=== PATIENT | male | born 1945 | race Caucasian/White ===

== ENCOUNTER 2019-11-16 05:03 | Inpatient (IN) | payer MEDICARE, MEDICAID ==
[2019-11-16] VITALS (18 sets, daily range): BP systolic 84–131; BP diastolic 55–80
[~2019-11-16] VITALS: Ht 180 cm; Wt 58.5 kg
--- OUTSIDE RECORDS SUMMARY | 2019-11-16 05:09 | XMS REPORT ---
Author Author Supa CULP Organization [facility] Address [address] [place], [place] [id number] Care Team Providers Care Auto Body Repair Teacher Name Role Phone GAVIN CULP PCP Allergies and Adverse Reactions Name Reaction Notes NO KNOWN DRUG ALLERGIES Plan of Treatment Not available. Medications Active Name Start Date Estimated Completion Date SIG Co mments alprazolam 0.5 mg oral tablet 07/19/2018 10/17/2018 ta ke 1 tablet by oral route 2 times a day as needed for 30 days Discontinued Name Start Date Discontinued Date SIG Comments Xanax 0.5 mg oral tablet 01/07/2012 01/07/2012 take 1 tablet (0.5 mg) by oral route 3 times per day for 30 days deleted alprazolam 0.5 mg oral tablet 09/06/2012 10/05/2012 TA KE 1 TABLET 3 TIMES A DAY NEEDED -THANK YOU. Must last 30 days deleted alprazolam 0.5 mg oral tablet 03/09/2013 10/05/2012 TA KE 1 TABLET 3 TIMES A DAY NEEDED -THANK YOU. deleted alprazolam 0.5 mg oral tablet 03/09/2013 03/09/2013 TA KE 1 TABLET 3 TIMES A DAY NEEDED -THANK YOU. deleted alprazolam 0.5 mg oral tablet 03/09/2013 03/09/2013 TA KE 1 TABLET 3 TIMES A DAY NEEDED -THANK YOU. deleted Problem List Description Status Onset Anxiety disorder Active Anemia Active 09/06/2012 Hyperlipidemia Active 09/06/2012 Hyponatremia Active Chronic Obstructive Pulmonary Disease Active Tobacco abuse Active 09/12/2014 Generalized anxiety disorder Active 09/18/2015 Smoker unmotivated to quit Active 01/18/2016 MISBAH (generalized anxiety disorder) Active 01/17 Vital Signs Date Time BP-Sys(mm[Hg] BP-Dimple(mm[Hg]) HR(bpm) RR(rpm) Temp WT HT HC BMI BSA BMI Percentile O2 Sat(%) 07/19/2018 10:19:00 AM 144 mmHg 70 mmHg 82 bpm 18 rpm 98.4 F 184 lbs 68 in 27.9768 kg/m 2.0011 m 98 % 01/15/2016 11:36:00 AM 140 mmHg 80 mmHg 64 bpm 16 rpm 98.6 F 181 lbs 67 in 28.35 kg/m2 1.97 m2 97 % 09/14/2015 9:43:00 AM 108 mmHg 60 mmHg 64 bpm 18 rpm 97.2 F 180 lbs 68 in 27.3686 kg/m 1.9792 m 98 % 03/15/2015 8:26:00 AM 130 mmHg 74 mmHg 80 bpm 18 rpm 97 F 178 lbs 67 in 27.88 kg/m2 1.95 m2 98 % 09/12/2014 9:09:00 AM 140 mmHg 70 mmHg 64 bpm 18 rpm 97 F 181 lbs 67 in 28.3483 kg/m 1.97 m 98 % 07/11/2013 3:03:00 PM 136 mmHg 72 mmHg 86 bpm 20 rpm 97.1 F 176 lbs 67 in 27.57 kg/m2 1.94 m2 98 % 09/06/2012 11:52:00 AM 130 mmHg 60 mmHg 60 bpm 16 rpm 96.6 F 176 lbs 67 in 27.5652 kg/m 1.9426 m 98 % 10/09/2011 10:26:00 AM 126 mmHg 68 mmHg 60 bpm 168 lbs 67 in 26.3122 kg/m 1.90 m2 08/05/2010 9:04:00 AM 122 mmHg 78 mmHg 72 bpm 170 lbs 05/06/2010 10:52:00 AM 124 mmHg 72 mmHg 76 bpm 169 lbs Social History Name Description Comments Tobacco Current every day smoker denies alcohol use High school graduate Active but no formal exercise Uses seatbelts History of Procedures Date Ordered Description Order Status 10/23/2011 12:00 AM ROUTINE VENIPUNCTURE Reviewed 10/23/2011 12:00 AM COMPLETE CBC W/AUTO DIFF WBC Reviewed 10/23/2011 12:00 AM COMPREHEN METABOLIC PANEL Reviewed 10/23/2011 12:00 AM LIPID PANEL Reviewed 10/23/2011 12:00 AM Prostate Cancer Screening PSA Reviewed 09/06/2012 12:00 AM ROUTINE VENIPUNCTURE Reviewed 09/06/2012 12:00 AM COMPLETE CBC W/AUTO DIFF WBC Reviewed 09/06/2012 12:00 AM COMPREHEN METABOLIC PANEL Reviewed 09/12/2014 12:00 AM ROUTINE VENIPUNCTURE Reviewed 09/12/2014 12:00 AM COMPLETE CBC W/AUTO DIFF WBC Reviewed 09/12/2014 12:00 AM COMPREHEN METABOLIC PANEL Reviewed 09/12/2014 12:00 AM LIPID PANEL Reviewed 09/12/2014 12:00 AM Prostate Cancer Screening PSA Reviewed Results Summary Date and Description Results 10/23/2011 4:12 PM WBC 5.8 RBC 4.34 HGB 13.50 g /dLHCT 39.70 %MCV 92.0 fLMCH 31.10 pgMCHC 34.0 g/dLRDW SD 45 RDW CV 13.60 %MPV 10.40 fLPLT 212 NRBC# 0.00 NRBC% 0.0 %NEUT 59.10 %%LYMP 23.0 %%MONO 14.10 %%EOS 3.30 %%BASO 0.50 %#NEUT 3.45 #LYMP 1.34 #MONO 0.82 #EOS 0.19 #BASO 0.03 MANUAL DIFF NOT IND GLUCOSE 86.0 mg/dLSODIUM 134.0 mmol/LPOTASSIUM 3.80 mmol/LCHLORIDE 102.0 mmol/LCO2 21.0 mmol/LBUN 9.0 mg/dLCREATININE 0.70 mg/dLSGOT/AST 16.0 IU/LSGPT/ALT 9.0 IU/LALK PHOS 79.0 IU/LTOTAL PROTEIN 6.20 g/dLALBUMIN 4.20 g/dLTOTAL BILI 0.40 mg/dLCALCIUM 9.60 mg/dLAGE 66 GFR NonAA 113 GFR AA 137 eGFR 60 eGFR AA* 60 TRIGLYCERIDES 63.0 mg/dLCHOLESTEROL 202.0 mg/dLHDL 64.0 mg/dLTOT CHOL/HDL 3.2 LDL (CALC) 125.0 mg/dLPSA TOTAL 2.430 ng/mL 09/06/2012 4:30 PM WBC 6.4 RBC 4.30 HGB 13.0 g/ dLHCT 39.70 %MCV 92.0 fLMCH 30.20 pgMCHC 32.70 g/dLRDW SD 46 RDW CV 13.70 %MPV 10.40 fLPLT 300 NRBC# 0.00 NRBC% 0.0 %NEUT 60.70 %%LYMP 27.50 %%MONO 8.40 %%EOS 3.10 %%BASO 0.30 %#NEUT 3.88 #LYMP 1.76 #MONO 0.54 #EOS 0.20 #BASO 0.02 MANUAL DIFF NOT IND GLUCOSE 48.0 mg/dLSODIUM 142.0 mmol/LPOTASSIUM 3.90 mmol/LCHLORIDE 107.0 mmol/LCO2 25.0 mmol/LBUN 9.0 mg/dLCREATININE 0.80 mg/dLSGOT/AST 14.0 IU/LSGPT/ALT 6.0 IU/LALK PHOS 69.0 IU/LTOTAL PROTEIN 6.50 g/dLALBUMIN 3.90 g/dLTOTAL BILI 0.20 mg/dLCALCIUM 9.60 mg/dLAGE 67 GFR NonAA 96 GFR AA 116 eGFR 60 eGFR AA* 60 09/12/2014 3:54 PM WBC 5.9 RBC 4.13 HGB 12.50 g /dLHCT 37.60 %MCV 91.0 fLMCH 30.30 pgMCHC 33.20 g/dLRDW SD 44 RDW CV 13.40 %MPV 10.0 fLPLT 282 NRBC# 0.00 NRBC% 0.0 %NEUT 65.0 %%LYMP 24.10 %%MONO 8.0 %%EOS 2.70 %%BASO 0.20 %#NEUT 3.82 #LYMP 1.42 #MONO 0.47 #EOS 0.16 #BASO 0.01 MANUAL DIFF NOT IND TRIGLYCERIDES 59.0 mg/dLCHOLESTEROL 172.0 mg/dLHDL 36.0 mg/dLTOT CHOL/HDL 4.8 LDL (CALC) 124.0 mg/dLGLUCOSE 77.0 mg/dLSODIUM 137.0 mmol/LPOTASSIUM 3.80 mmol/LCHLORIDE 105.0 mmol/LCO2 23.0 mmol/LBUN 6.0 mg/dLCREATININE 0.70 mg/dLSGOT/AST 14.0 IU/LSGPT/ALT <6 IU/LALK PHOS 75.0 IU/LTOTAL PROTEIN 6.40 g/dLALBUMIN 3.90 g/dLTOTAL BILI 0.30 mg/dLCALCIUM 8.90 mg/dLAGE 69 GFR NonAA 112 GFR AA 136 eGFR >60 mL/min/1.73 m2eGFR AA* >60 PSA TOTAL 2.540 ng/mL History Of Immunizations Not available. History of Past Illness Name Date of Onset Comments Anxiety disorder Anemia 09/06/2012 Hyperlipidemia 09/06/2012 Hyponatremia Chronic Obstructive Pulmonary Disease 09/06/2012 Anxiety Disorder May 06 2010 10:52AM Tobacco Abuse May 06 2010 10:52AM General Medical Exam, Adult May 06 2010 10:52AM Tobacco abuse 09/12/2014 Anxiety Disorder Aug 05 2010 9:05AM General Medical Exam, Adult Aug 05 2010 9:05AM Generalized anxiety disorder 09/18/2015 Smoker unmotivated to quit 01/18/2016 MISBAH (generalized anxiety disorder) 01/18/2016 Anxiety Disorder Oct 09 2011 10:27AM Tobacco Abuse Oct 09 2011 10:27AM Chronic Obstructive Pulmonary Disease Oct 09 2011 10:27AM Pain in joint; shoulder region, Left Oct 09 2011 10:27AM Anxiety Oct 23 2011 9:17AM Anemia Sep 06 2012 1:07PM Anxiety Disorder Sep 06 2012 1:07PM Hyponatremia Sep 06 2012 1:07PM Anxiety Disorder Sep 06 2012 11:54AM Tobacco Abuse Sep 06 2012 11:54AM Chronic Obstructive Pulmonary Disease Sep 06 2012 11:54AM Hyperlipidemia Sep 06 2012 11:54AM Anxiety Disorder Jul 11 2013 3:04PM Hyperlipidemia, unspecified Sep 12 2014 9:10AM Anxiety Disorder Sep 12 2014 9:10AM Tobacco Abuse Sep 12 2014 9:10AM Chronic Obstructive Pulmonary Disease Sep 12 2014 9:10AM Hyperlipidemia Sep 12 2014 1:19PM Anxiety Sep 12 2014 1:19PM Chronic Obstructive Pulmonary Disease Sep 12 2014 1:19PM Hyponatremia Sep 12 2014 1:19PM Prostate cancer screening Sep 12 2014 1:19PM Anxiety Disorder Mar 19 2015 7:51AM Chronic Obstructive Pulmonary Disease Mar 19 2015 7:51AM Tobacco Abuse Mar 19 2015 7:51AM Generalized anxiety disorder Sep 14 2015 9:44AM MISBAH (generalized anxiety disorder) Jan 15 2016 11:37AM COPD (chronic obstructive pulmonary disease) Jan 15 2016 11: 37AM Smoker unmotivated to quit Jan 15 2016 11:37AM MISBAH (generalized anxiety disorder) Jul 19 2018 10:21AM Medication management Jul 19 2018 10:21AM Payers Insurance Name Company Name Plan Name Plan Number Policy Number [place] Group Number Start Date Medicare RHC Medicare RHC [id number] N/A [facility] [id number] N/A Medicare Part A Medicare - Lab/Xray [id number] N/A Medicare Part A Medicare Part A [id number] N/A [facility] Assistance [facility] Jermainkaren Rincong [id number] N/A History of Encounters Visit Date Visit Type Provider 07/19/2018 Office visit GAVIN CEDILLO 01/15/2016 Office visit GAVIN CEDILLO 09/14/2015 Office visit GAVIN CEDILLO 03/15/2015 Office visit GAVIN CEDILLO 09/12/2014 Office visit GAVIN CEDILLO 07/11/2013 Office visit GAVIN CEDILLO 09/06/2012 Office visit GAVIN CEDILLO 10/23/2011 Office visit GAVIN CEDILLO 10/09/2011 Office visit GAVIN CEDILLO 08/05/2010 Office visit Gavin Wong 05/06/2010 Office visit Gavin Wong
--- OUTSIDE RECORDS SUMMARY | 2019-11-16 05:10 | XMS REPORT ---
Author Author Supa CULP Organization [facility] Address [address] [place], [place] [id number] Care Team Providers Care Physics Professor Name Role Phone GAVIN CULP PCP Unavailable Allergies and Adverse Reactions Name Reaction Notes NO KNOWN DRUG ALLERGIES Plan of Treatment Not available. Medications Active Name Start Date Estimated Completion Date SIG Co mments alprazolam 0.5 mg oral tablet 03/15/2015 ta ke 1 tablet by oral route 3 times a day as needed Discontinued Name Start Date Discontinued Date SIG [...] deleted Problem List Description Status Onset Anxiety Disorder Active Anemia Active 09/06/2012 Hyperlipidemia Active 09/06/2012 Hyponatremia Active Chronic Obstructive Pulmonary Disease Active Tobacco Abuse Active 09/12/2014 Vital Signs Date Time BP-Sys(mm[Hg] BP-Dimple(mm[Hg]) HR(bpm) RR(rpm) Temp WT HT HC BMI BSA BMI Percentile O2 Sat(%) 03/15/2015 8:26:00 AM 130 mmHg 74 mmHg [...] mmHg 60 bpm 168 lbs 67 in 26.31 kg/m2 1.90 m2 08/05/2010 9:04:00 AM 122 mmHg [...] 12:00 AM COMPLETE CBC W/AUTO DIFF WBC Returned 10/23/2011 12:00 AM COMPREHEN METABOLIC PANEL Returned 10/23/2011 12:00 AM LIPID PANEL Returned 10/23/2011 12:00 AM Prostate Cancer Screening PSA Returned 09/06/2012 12:00 AM ROUTINE VENIPUNCTURE Reviewed 09/06/2012 12:00 AM COMPLETE CBC W/AUTO DIFF WBC Reviewed 09/06/2012 12:00 AM COMPREHEN METABOLIC PANEL Reviewed 09/12/2014 12:00 AM ROUTINE VENIPUNCTURE Reviewed 09/12/2014 12:00 AM COMPLETE CBC W/AUTO DIFF WBC Reviewed 09/12/2014 12:00 AM COMPREHEN METABOLIC PANEL Reviewed 09/12/2014 12:00 AM LIPID PANEL Reviewed 09/12/2014 12:00 AM Prostate Cancer Screening PSA Reviewed Results Summary Data and Description Results 10/23/2011 4:12 PM WBC 5.8 RBC 4.34 HGB 13.50 g /dLHCT 39.70 %MCV 92.0 fLMCH 31.10 pgMCHC 34.0 g/dLRDW CV 13.60 %MPV 10.40 fLPLT 212 %NEUT 59.10 %%LYMP 23.0 %%MONO 14.10 %%EOS 3.30 %%BASO 0.50 %#NEUT 3.45 #LYMP 1.34 #MONO 0.82 #EOS 0.19 #BASO 0.03 GLUCOSE 86.0 mg/dLSODIUM 134.0 mmol/LPOTASSIUM 3.80 mmol/LCHLORIDE 102.0 mmol/LCO2 21.0 mmol/LBUN 9.0 mg/dLCREATININE 0.70 mg/dLSGOT/AST 16.0 IU/LSGPT/ALT 9.0 IU/LALK PHOS 79.0 IU/LTOTAL PROTEIN 6.20 g/dLALBUMIN 4.20 g/dLTOTAL BILI 0.40 mg/dLCALCIUM 9.60 mg/dLeGFR 60 TRIGLYCERIDES 63.0 mg/dLCHOLESTEROL 202.0 mg/dLHDL 64.0 mg/dLLDL (CALC) 125.0 mg/dLPSA TOTAL 2.430 ng/mL 09/06/2012 4:30 PM WBC 6.4 RBC 4.30 HGB 13.0 g/ dLHCT 39.70 %MCV 92.0 fLMCH 30.20 pgMCHC 32.70 g/dLRDW CV 13.70 %MPV 10.40 fLPLT 300 %NEUT 60.70 %%LYMP 27.50 %%MONO 8.40 %%EOS 3.10 %%BASO 0.30 %#NEUT 3.88 #LYMP 1.76 #MONO 0.54 #EOS 0.20 #BASO 0.02 GLUCOSE 48.0 mg/dLSODIUM 142.0 mmol/LPOTASSIUM 3.90 mmol/LCHLORIDE 107.0 mmol/LCO2 25.0 mmol/LBUN 9.0 mg/dLCREATININE 0.80 mg/dLSGOT/AST 14.0 IU/LSGPT/ALT 6.0 IU/LALK PHOS 69.0 IU/LTOTAL PROTEIN 6.50 g/dLALBUMIN 3.90 g/dLTOTAL BILI 0.20 mg/dLCALCIUM 9.60 mg/dLeGFR 60 09/12/2014 3:54 PM WBC 5.9 RBC 4.13 HGB 12.50 g /dLHCT 37.60 %MCV 91.0 fLMCH 30.30 pgMCHC 33.20 g/dLRDW CV 13.40 %MPV 10.0 fLPLT 282 %NEUT 65.0 %%LYMP 24.10 %%MONO 8.0 %%EOS 2.70 %%BASO 0.20 %#NEUT 3.82 #LYMP 1.42 #MONO 0.47 #EOS 0.16 #BASO 0.01 TRIGLYCERIDES 59.0 mg/dLCHOLESTEROL 172.0 mg/dLHDL 36.0 mg/dLLDL (CALC) 124.0 mg/dLGLUCOSE 77.0 mg/dLSODIUM 137.0 mmol/LPOTASSIUM 3.80 mmol/LCHLORIDE 105.0 mmol/LCO2 23.0 mmol/LBUN 6.0 mg/dLCREATININE 0.70 mg/dLSGOT/AST 14.0 IU/L SGPT/ALT <6 IU/LALK PHOS 75.0 IU/LTOTAL PROTEIN 6.40 g/dLALBUMIN 3.90 g/dLTOTAL BILI 0.30 mg/dLCALCIUM 8.90 mg/dLeGFR >60 mL/min/1.73 m2PSA TOTAL 2.540 ng/mL History Of Immunizations Not available. History of Past Illness Name Date of Onset Comments Anxiety Disorder Anemia 09/06/2012 Hyperlipidemia 09/06/2012 Hyponatremia Chronic Obstructive Pulmonary Disease 09/06/2012 Anxiety Disorder May 06 2010 10:52AM Tobacco Abuse May 06 2010 10:52AM General Medical Exam, Adult May 06 2010 10:52AM Tobacco Abuse 09/12/2014 Anxiety Disorder Aug 05 2010 9:05AM General Medical Exam, Adult Aug 05 2010 9:05AM Anxiety Disorder Oct 09 2011 10:27AM Tobacco [...] 7:51AM Tobacco Abuse Mar 19 2015 7:51AM Payers Insurance Name Company Name Plan Name Plan Number Policy Number [place] Group Number Start Date Medicare Part A Medicare Part A [id number] N/A [facility] [id number] N/A [place] [facility] [id number] N/A History of Encounters Visit Date Visit Type Provider 03/15/2015 Office visit GAVIN CEDILLO 09/12/2014 Office visit GAVIN CEDILLO 07/11/2013 Office visit GAVIN CEDILLO 09/06/2012 Office visit GAVIN CEDILLO 10/23/2011 Office visit GAVIN CEDILLO 10/09/2011 Office visit GAVIN CEDILLO 08/05/2010 Office visit Gavin Wong 05/06/2010 Office visit Gavin Wong
--- OUTSIDE RECORDS SUMMARY | 2019-11-16 05:10 | XMS REPORT ---
Author Author Supa CULP Organization [facility] Address [address] [place], [place] [address] Care Team Providers Care Diesel Engine Mechanic Name Role Phone GAVIN CULP PCP Unavailable Allergies and Adverse Reactions Name Reaction Notes NO KNOWN DRUG ALLERGIES Plan of Treatment Not available. Medications Active Name Start Date Estimated Completion Date SIG Co mments alprazolam 0.5 mg oral tablet 09/18/2015 ta ke 1 tablet by oral route [...] Pulmonary Disease Active Tobacco Abuse Active 09/12/2014 Generalized anxiety disorder Active 09/18/2015 Vital Signs Date Time BP-Sys(mm[Hg] BP-Dimple(mm[Hg]) HR(bpm) RR(rpm) Temp WT HT HC BMI BSA BMI Percentile O2 Sat(%) 09/14/2015 9:43:00 AM 108 mmHg 60 mmHg 64 bpm 18 rpm 97.2 F 180 lbs 68 in 27.37 kg/m2 1.98 m2 98 % 03/15/2015 8:26:00 AM 130 mmHg 74 mmHg 80 bpm 18 rpm 97 F 178 lbs 67 in 27.8785 kg/m 1.9537 m 98 % 09/12/2014 9:09:00 AM 140 mmHg 70 mmHg 64 bpm 18 rpm 97 F 181 lbs 67 in 28.35 kg/m2 1.97 m2 98 % 07/11/2013 3:03:00 PM 136 mmHg 72 mmHg 86 bpm 20 rpm 97.1 F 176 lbs 67 in 27.5652 kg/m 1.9426 m 98 % 09/06/2012 11:52:00 AM 130 mmHg 60 mmHg 60 bpm 16 rpm 96.6 F 176 lbs 67 in 27.57 kg/m2 1.94 m2 98 % 10/09/2011 10:26:00 AM 126 mmHg 68 mmHg 60 bpm 168 lbs 67 in 26.3122 kg/m 1.898 m 08/05/2010 9:04:00 AM 122 mmHg 78 mmHg [...] HGB 13.0 g/ dLHCT 39.70 %MCV 92.0 fLH 30.20 pgMCHC 32.70 g/dLRDW CV 13.70 %MPV [...] 05 2010 9:05AM Generalized anxiety disorder 09/18/2015 Anxiety Disorder Oct 09 2011 10:27AM Tobacco [...] Generalized anxiety disorder Sep 14 2015 9:44AM Payers Insurance Name Company Name Plan Name Plan Number Policy Number [place] Group Number Start Date Medicare Part A Medicare Part A [facility] [id number] N/A [facility] [id number] N/A Medicare Part A Medicare Part A [id number] N/A [place] [facility] [id number] N/A History of Encounters Visit Date Visit Type Provider 09/14/2015 Office visit GAVIN CEDILLO 03/15/2015 Office visit GAVIN CEDILLO 09/12/2014 Office visit GAVIN CEDILLO 07/11/2013 Office visit GAVIN CEDILLO 09/06/2012 Office visit GAVIN CEDILLO 10/23/2011 Office visit GAVIN CEDILLO 10/09/2011 Office visit GAVIN CEDILLO 08/05/2010 Office visit Gavin Wong 05/06/2010 Office visit Gavin Wong
--- OUTSIDE RECORDS SUMMARY | 2019-11-16 05:10 | XMS REPORT | Continuity of Care Document ---
Author Organization Unknown Address Unknown Phone Unavailable Allergies Active Description Code Type Severity Reaction Onset Reported/Identified Relationship to Patient Clinical Status Yes NO KNOWN DRUG ALLERGIES UNKNOWN UNKNOWN Medications Medication Packaging Start Date St op Date Route Dosage Sig NORMAL SALINE 1000CC IV BAG INJ 0.9 % (NS 1000CC IV BAG) ml 10/30/2019 11/14/2019 CONTINUOUSEVERY 0 Hour LORAZEPAM 1CC VIAL INJ 2 MG/CC (ATIVAN VIA L) MG 10/30/2019 10/30/2019 ONCE&1817 NORMAL SALINE 1000CC IV BAG INJ 0.9 % (NS 1000CC IV BAG) ml 10/30/2019 11/14/2019 CONTINUOUSEVERY 0 Hour FLUCONAZOLE IV PREMIX BAG IN J 200 MG/100CC (DIFLUCAN IV 100CC BAG) MG 10/30/2019 10/30/2019 ONCE&1900 Piperacillin-tazobactam) 2.2 5 Gm IV Vial (Zosyn) GM 10/30/2019 11/06/2019 Q6H&0400,1000,1600,2200 PANTOPRAZOLE VIAL INJ 40 MG (PROTONIX IV) MG 10/30/2019 11/05/2019 EVERY 24 Hour&2000 HALOPERIDOL VIAL INJ 5 MG/CC (HALDOL 1CC V IAL) MG 10/30/2019 11/06/2019 PRN Q4H ACETAMINOPHEN SUPPOS SUP 650 MG (TYLENOL) MG 10/30/2019 11/06/2019 PRN Q4H LORAZEPAM 1CC VIAL INJ 2 MG/CC (ATIVAN VIA L) MG 10/30/2019 11/06/2019 PRN Q4H Hydromorphone inj 2mg/cc vial (Dilaudid) MG 10/30/2019 11/06/2019 PRN Q2H ONDANSETRON VIAL INJ 4 MG/2CC (ZOFRAN 2CC VIAL) MG 10/30/2019 11/06/2019 PRN Q6H CALMOSEPTINE OINT TUBE (RISAMINE OINT) keenan 10/31/2019 11/07/2019 PRN QID POLY/BACI/NEOM OINT OINT (NEOSPORIN) keenan 10/31/2019 10/31/2019 ONCE&0125 NICOTINE PATCH PAT 21 MG (NICODERM) MG 10/31/2019 11/06/2019 Daily&0400 CALMOSEPTINE OINT TUBE (RISAMINE OINT) keenan 10/31/2019 11/06/2019 BID&0800,2000 POLY/BACI/NEOM OINT OINT (NEOSPORIN) keenan 10/31/2019 11/06/2019 BID&0800,2000 BISACODYL TAB 5 MG (DULCOLAX) MG 10/31/2019 11/06/2019 PRN Daily FLUCONAZOLE IV PREMIX BAG IN J 200 MG/100CC (DIFLUCAN IV 100CC BAG) MG 10/31/2019 11/06/2019 Q24H&1800 FLUCONAZOLE TAB 100 MG (DIFLUCAN) MG 10/31/2019 11/06/2019 Daily&2000 PANTOPRAZOLE TAB 40 MG (PROTONIX) MG 10/31/2019 11/13/2019 Q24H&2000 FLUCONAZOLE IV PREMIX BAG IN J 200 MG/100CC (DIFLUCAN IV 100CC BAG) MG 10/31/2019 11/06/2019 Q24H&2000 CLOTRIMAZOLE/BETAMETHASONE C RM CRM 0 (LOTRISONE CREAM) keenan 10/31/2019 11/07/2019 BID&0800,2000 Ondansetron 4mg oral DissolveTab (Zofran) MG 11/01/2019 11/30/2019 PRN Q4H LORAZEPAM 1CC VIAL INJ 2 MG/CC (ATIVAN VIA L) MG 11/01/2019 11/08/2019 PRN Q4H POTASSIUM CHLORIDE TAB 10 MEQ (K-DUR) MEQ 11/03/2019 12/02/2019 BID&09,2100 POTASSIUM CHLORIDE TAB 10 MEQ (K-DUR) MEQ 11/03/2019 12/03/2019 BID&0800,2000 CALMOSEPTINE OINT TUBE (RISAMINE OINT) keenan 11/04/2019 11/11/2019 PRN QID ACETAMINOPHEN ORAL TABLET 325mg(Tylenol) MG 11/04/2019 12/04/2019 PRN EVERY 6 Hour POLYETHYLENE GLYCOL POWDER U D PWD (MIRALAX 17GM UNIT DOSE PAKS) gm 11/04/2019 11/14/2019 PRN Q3H Flu vacc [id number] 6mos up(P F)) IM syringe QUAD (Fluarix) ML 11/04/2019 11/04/2019 ONCE&1330 PNEUMONIA VACCINE INJ (PREVNAR-13) ml 11/04/2019 11/04/2019 ONCE&1330 ALUM/MAG/SIMETH 30CC LIQ (MYLANTA PLUS) cc 11/04/2019 11/14/2019 PRN Q4H HALOPERIDOL TAB 5 MG (HALDOL) MG 11/04/2019 12/04/2019 PRN Q6H LORAZEPAM TAB 0.5 MG (ATIVAN) MG 11/04/2019 11/04/2019 PRN ONCE TAMSULOSIN CAP 0.4 MG (FLOMAX) MG 11/04/2019 12/03/2019 QPM&1800 POTASSIUM CHLORIDE TAB 10 MEQ (K-DUR) MEQ 11/04/2019 12/04/2019 BID&0800,2000 FLUCONAZOLE TAB 100 MG (DIFLUCAN) MG 11/04/2019 11/06/2019 QPM&2000 RISPERIDONE TAB 0.25 MG (RISPERDAL) MG 11/04/2019 12/04/2019 TID&0800,1400,2000 CLOTRIMAZOLE/BETAMETHASONE C RM CRM 0 (LOTRISONE CREAM) keenan 11/04/2019 11/09/2019 BID&0800,2000 LACTULOSE SYRUP LIQ 20 GM/30 CC (CHRONULAC SYRUP) GM 11/04/2019 12/04/2019 BID&0800,2000 MILK OF MAGNESIA LIQ ml 11/04/2019 12/04/2019 PRN BID PAROXETINE TAB 20 MG (PAXIL) MG 11/05/2019 12/04/2019 Daily&0900 MEGESTROL TAB 20 MG (MEGASE) MG 11/05/2019 12/04/2019 Daily&0900 BISACODYL SUPPOS 10 MG (DULCOLAX SUPPOS) MG 11/05/2019 11/11/2019 PRN Daily NICOTINE PATCH PAT 7 MG (NICODERM) MG 11/05/2019 12/04/2019 Daily&0900 QUETIAPINE TAB 25 MG (SEROQUEL) MG 11/05/2019 11/05/2019 ONCE&1455 LORAZEPAM TAB 1 MG (ATIVAN) MG 11/05/2019 12/05/2019 PRN Q6H TAMSULOSIN CAP 0.4 MG (FLOMAX) MG 11/05/2019 12/05/2019 BID&0800,2000 QUETIAPINE TAB 25 MG (SEROQUEL) MG 11/05/2019 11/07/2019 Q8H&0600,1400,2200 QUETIAPINE TAB 25 MG (SEROQUEL) MG 11/08/2019 12/07/2019 BID&0800,2000 SERTRALINE TAB 50 MG (ZOLOFT) MG 11/08/2019 12/07/2019 Daily&0900 Problems Date Dx Coded Attending Type Code Diagnosis Diagnosed By 10/30/2019 Priscilla Chavis W 276.51 DEHYDRATION 10/30/2019 Priscilla Chavis W 530.4 PERFORATION OF ESOPHAGUS 10/30/2019 Partha Priscilla W 584.9 ACUTE KIDNEY FAILURE, UNSPECIFIED 10/30/2019 Sendy Chavisi W 780.97 ALTERED MENTAL STATUS 10/30/2019 Priscilla Chavis W E86.0 DEHYDRATION 10/30/2019 Priscilla Chavis W K22.3 PERFORATION OF ESOPHAGUS 10/30/2019 Sendy Chavisi W N17.9 ACUTE KIDNEY FAILURE, UNSPECIFIED 10/30/2019 Partha Priscilla W R41.82 ALTERED MENTAL STATUS, UNSPECIFIED 11/04/2019 Priscilla Chavis W 276.51 DEHYDRATION 11/04/2019 Partha Priscilla W 530.4 PERFORATION OF ESOPHAGUS 11/04/2019 Partha Priscilla W 584.9 ACUTE KIDNEY FAILURE, UNSPECIFIED 11/04/2019 Partha Priscilla W 780.97 ALTERED MENTAL STATUS 11/04/2019 Sendy Chavisi W E86.0 DEHYDRATION 11/04/2019 Partha Priscilla W K22.3 PERFORATION OF ESOPHAGUS 11/04/2019 Partha Priscilla W N17.9 ACUTE KIDNEY FAILURE, UNSPECIFIED 11/04/2019 Partha Priscilla W R41.82 ALTERED MENTAL STATUS, UNSPECIFIED Procedures There is no data. Results Test Result Range Blood Culture - 10/30/19 15:39 PRELIM CULTURE RESULTS Blood Culture Negativ e, No Growth Day 1 FINAL CULTURE RESULTS Blood Culture Negative , No Growth Day 5 MEDIA PLATED Setup at 17:15 on 10/30/2019X [id number] Culture Media Position C48 CULTURE SOURCE BLOOD CULTURE # 1 Lactic Acid - 10/30/19 15:39 Lactic Acid 14.5 mg/dL 4.5-19.8 Blood Culture - 10/30/19 16:51 PRELIM CULTURE RESULTS Blood Culture Negativ e, No Growth Day 1 FINAL CULTURE RESULTS Blood Culture Negative , No Growth Day 5 MEDIA PLATED Blood Culture Media Position C42 CULTURE SOURCE BLOOD CULTURE # 2 Urinalysis - 10/30/19 22:40 Icotest N/A Negative Urine Volume Urine Volume Insufficient ( <10mL) May Affect Microscopic Exam Urine-Appearance Slightly Cloudy Clear Urine-Bacteria Trace Urine-Bilirubin Negative Negative Urine-Blood 1+ Negative Urine-Color Yellow Colorless-Lt. [place] ow Urine-Epithelial Cells 5-10/HPF Urine-Glucose Negative Negative Urine-Ketones Trace Negative Urine-Leukocytes 1+ Negative Urine-Nitrite Negative Negative Urine-Other Urine Saved if Culture Need ed (48hrs from time of collection) Urine-pH 5.5 5-8.5 Urine-Protein Negative Negative Urine-RBC 0-2/HPF Urine-Specific [place] 1.020 1.000-1 .030 Urine-WBC 5-10/HPF Urobilinogen 0.2 0.2-1.0 Comprehensive Metabolic Panel - 10/31/19 05:00 Albumin 3.1 g/dL 3.6-5.1 ALP 55 U/L 35-130 ALT 18 U/L 6-45 Anion Gap 17 6-14 AST 24 U/L 2-40 BUN 53 mg/dL 5-25 Calcium 8.2 mg/dL 8.3-10.4 Chloride 109 mmol/L 95-114 CO2 21 mEq/L 22-33 Creat 2.25 mg/dL 0.50-1.50 eGFR 29 mL/min/1.73m2 >59 Globulin 2.2 g/dL 2.3-3.5 Glucose 86 mg/dL 70-110 Osmo 308 280-295 Potassium 3.7 mmol/L 3.5-5.3 Sodium 143 mmol/L 134-148 TBil 0.8 mg/dL 0.2-1.2 TP 5.3 g/dL 6.0-8.3 Comprehensive Metabolic Panel - 11/01/19 06:18 Albumin 3.0 g/dL 3.6-5.1 ALP 51 U/L 35-130 ALT 16 U/L 6-45 Anion Gap 14 6-14 AST 20 U/L 2-40 BUN 35 mg/dL 5-25 Calcium 8.1 mg/dL 8.3-10.4 Chloride 108 mmol/L 95-114 CO2 22 mEq/L 22-33 Creat 1.76 mg/dL 0.50-1.50 eGFR 38 mL/min/1.73m2 >59 Globulin 2.2 g/dL 2.3-3.5 Glucose 99 mg/dL 70-110 Osmo 299 280-295 Potassium 3.0 mmol/L 3.5-5.3 Sodium 141 mmol/L 134-148 TBil 0.7 mg/dL 0.2-1.2 TP 5.2 g/dL 6.0-8.3 Comprehensive Metabolic Panel - 11/02/19 05:00 Albumin 3.0 g/dL 3.6-5.1 ALP 47 U/L 35-130 ALT 13 U/L 6-45 Anion Gap 13 6-14 AST 16 U/L 2-40 BUN 23 mg/dL 5-25 Calcium 8.8 mg/dL 8.3-10.4 Chloride 106 mmol/L 95-114 CO2 26 mEq/L 22-33 Creat 1.37 mg/dL 0.50-1.50 eGFR 51 mL/min/1.73m2 >59 Globulin 2.7 g/dL 2.3-3.5 Glucose 99 mg/dL 70-110 Osmo 297 280-295 Potassium 3.0 mmol/L 3.5-5.3 Sodium 142 mmol/L 134-148 TBil 0.6 mg/dL 0.2-1.2 TP 5.7 g/dL 6.0-8.3 Comprehensive Metabolic Panel - 11/03/19 05:00 Albumin 2.8 g/dL 3.6-5.1 ALP 53 U/L 35-130 ALT 15 U/L 6-45 Anion Gap 12 6-14 AST 17 U/L 2-40 BUN 17 mg/dL 5-25 Calcium 8.0 mg/dL 8.3-10.4 Chloride 103 mmol/L 95-114 CO2 29 mEq/L 22-33 Creat 1.24 mg/dL 0.50-1.50 eGFR 57 mL/min/1.73m2 >59 Globulin 2.1 g/dL 2.3-3.5 Glucose 96 mg/dL 70-110 Osmo 292 280-295 Potassium 3.0 mmol/L 3.5-5.3 Sodium 141 mmol/L 134-148 TBil 0.5 mg/dL 0.2-1.2 TP 4.9 g/dL 6.0-8.3 Thyroid Stimulating Hormone - 11/04/19 0 5:00 TSH 2.18 mIU/mL 0.32-5.00 Comprehensive Metabolic Panel - 11/07/19 09:32 Albumin 3.1 g/dL 3.6-5.1 ALP 59 U/L 35-130 ALT 28 U/L 6-45 Anion Gap 13 6-14 AST 24 U/L 2-40 BUN 16 mg/dL 5-25 Calcium 8.5 mg/dL 8.3-10.4 Chloride 103 mmol/L 95-114 CO2 25 mEq/L 22-33 Creat 1.04 mg/dL 0.50-1.50 eGFR 70 mL/min/1.73m2 >59 Globulin 2.4 g/dL 2.3-3.5 Glucose 193 mg/dL 70-110 Osmo 289 280-295 Potassium 4.4 mmol/L 3.5-5.3 Sodium 137 mmol/L 134-148 TBil 0.4 mg/dL 0.2-1.2 TP 5.5 g/dL 6.0-8.3 Comprehensive Metabolic Panel - 11/14/19 05:05 Albumin 2.9 g/dL 3.6-5.1 ALP 65 U/L 35-130 ALT 77 U/L 6-45 Anion Gap 14 6-14 AST 47 U/L 2-40 BUN 17 mg/dL 5-25 Calcium 8.0 mg/dL 8.3-10.4 Chloride 108 mmol/L 95-114 CO2 20 mEq/L 22-33 Creat 0.83 mg/dL 0.50-1.50 eGFR 90 mL/min/1.73m2 >59 Globulin 2.2 g/dL 2.3-3.5 Glucose 85 mg/dL 70-110 Osmo 284 280-295 Potassium 4.5 mmol/L 3.5-5.3 Sodium 137 mmol/L 134-148 TBil 0.2 mg/dL 0.2-1.2 TP 5.1 g/dL 6.0-8.3 Encounters ACCT No. Visit Date/Time Discharge Status Pt. Type Provider Facility Loc./Unit Complaint [id number] 07/19/2018 11:04:42 07/19/2018 23:59: 59 CLS Outpatient [facility] [id number] 01/15/2016 11:22:48 01/15/2016 23:59: 59 CLS Outpatient [facility] [id number] 03/15/2015 09:31:08 03/15/2015 23:59: 59 CLS Outpatient [facility] [id number] 09/12/2014 09:53:01 09/12/2014 23:59: 59 CLS Outpatient [facility] [id number] 07/11/2013 15:17:45 07/11/2013 23:59: 59 CLS Outpatient [facility] [id number] 11/04/2019 13:00:00 11/14/2019 09:10 :00 DIS Inpatient [facility] [id number] 10/30/2019 14:40:00 11/04/2019 12:55 :00 DIS Inpatient [facility] [id number] 10/30/2019 15:01:38 Document Registration
[2019-11-16] MEDS ORDERED: NS IV 1000 ML 1,000 ML IV SCH ×2 (05:16→07:07)
--- NOTE | 2019-11-16 05:24 | ED GI ---
General Stated Complaint: VOMITING Source of Information: EMS, Long Term Records (ALL HISTORY IS FROM RESIDENTIAL RECORD PT HAS NO PRIOR VISITS TO THIS FACILITY) Exam Limitations: Other (PT WITH DEMENTIA, UNABLE TO GIVE ANY RELEVANT INFORMATION) (ABDON CONKLIN DO) History of Present Illness Date Seen by Provider: Nov 16, 2019 Time Seen by Provider: 05:05 Initial Comments PT ARRIVES VIA EMS FROM [facility] PT IS NEW ADMIT TO RESIDENTIAL 11/14/19--ACCORDING TO RESIDENTIAL RECORD, PT WAS ADMITTED THERE FROM [facility] PER EMS, RESIDENTIAL STAFF HAD REPORTED THAT PT VOMITED X 2 SOMETIME YESTERDAY AFTERNOON--UNKNOWN COLOR PT HAD 1 EPISODE OF COFFEE-GROUND EMESIS AROUND MIDNIGHT TONIGHT EMS WAS CALLED PRIOR TO ARRIVAL FOR PT FOUND TO HAVE LOW BLOOD PRESSURE WHEN PT WAS SITTING ON TOILET --BP 80/64 FOR RESIDENTIAL NO REPORTED DIARRHEA BP FOR EMS 112/75 WITH PULSE 139 WHILE SUPINE BP 94/59 WITH PULSE 145 WITH SITTING NO ASPIRIN, BLOOD THINNERS OR NSAIDS ARE LISTED ON PT'S MED LIST FROM RESIDENTIAL WHEN ASKED IF HE HURTS, HE POINTS TO RIGHT CLAVICLE AREA PCP: DR. CORLEY (ABDON CONKLIN DO) Allergies and Home Medications Allergies Coded Allergies: No Known Drug Allergies (Unverified , 11/16/19) Patient Home Medication List Home Medication List Reviewed: Yes (ABDON CONKLIN DO) Review of Systems Review of Systems Constitutional: other (PT UNABLE TO GIVE INFORMATION) Gastrointestinal: See HPI (ABDON CONKLIN DO) Past Aujlqph-Gzepms-Ycuwpq Hx Patient Social History Smoking Status: Current Everyday Smoker Type Used: Cigarettes (ABDON CONKLIN DO) Past Medical History Neurological: Yes (DEMENTIA WITH BEHAVIOR DISORDER/SEVERE PSYCHOTIC SYMPTOMS) Dementia Genitourinary: Yes (URINARY RETENTION) Prostate Problems, Renal Failure Gastrointestinal: Yes (NON-TRAUMATIC PERFORATION OF INTESTINE) Chronic Constipation Musculoskeletal: Yes Arthritis Psychosocial: Yes (DEMENTIA WITH BEHAVIOR DISTURBANCE/SEVERE PSYCHOTIC SYMPTOMS) Sleep Difficulties, Depression (ABDON CONKLIN DO) Family Medical History ADDITIONAL PMH: -ANOREXIA -HYPOKALEMIA -NICOTINE DEPENDENCE -NON-COMPLIANCE (ABDON CONKLIN DO) Physical Exam Vital Signs Vital Signs - First Documented 11/16/19 05:10 Temp 37.2 Pulse 130 Resp 20 B/P (MAP) 103/60 (74) Pulse Ox 100 O2 Delivery Room Air (DEBI SCHWAB MD) Vital Signs Capillary Refill : (ABDON CONKLIN DO) Height/Weight/BMI Height: '" Weight: lbs. oz. kg; BMI Method: General Appearance: no apparent distress, cachetic, other (PT AWAKE ALERT, MINIMALLY VERBAL, BUT DOES NOT APPEAR TO BE IN ANY DISCOMFORT OR DISTRESS) HEENT: other (MODERATE AMOUNT OF DARK BROWN MATERIAL IN MOUTH, LIPS AND NARES. ) Respiratory: normal breath sounds, no respiratory distress, no accessory muscle use Cardiovascular: no edema, no JVD, no murmur, tachycardia (140'S ) Gastrointestinal: normal bowel sounds, non tender, soft, other (BLADDER APPEARS TO BE DISTENDED TO LEVEL OF UMBILICUS) Genital/Rectal: other (LEG BAG IN PLACE WITH EXTREMELY PURULENT URINE ( VERY THICK, [place]PAQUE AND SANTOS IN COLOR ) --APPROXIMATELY 275 ML URINE IN BAG) Extremities: no pedal edema, normal capillary refill Neurologic/Psychiatric: other (MOVES ALL EXTREMITIES, MINIMALLY VERBAL. CONFUSION--NORMAL BASELINE, ACCORDING TO EMS WITH HISTORY OF DEMENTIA) Skin: warm/dry, pallor (ABDON CONKLIN DO) Focused Exam Sepsis Stage: Septic Shock Possible Source: Genitouriary Lactate Level 11/16/19 06:06: Lactic Acid Level 11.28*H (DEBI SCHWAB MD) Time of Focused Exam: 07:30 Respiratory: Lungs Clear, Normal Breath Sounds Cardiovascular: No Edema, No Murmur, Tachycardia Peripheral Pulses: 1+ Radial Pulses (L) Skin: normal color, warm/dry Lactic Acid Level Laboratory Tests Test 11/16/19 06:06 Lactic Acid Level 11.28 MMOL/L (0.50-2.00) *H (DEBI SCHWAB MD) Within 3hrs of presentation: Admin fluids, Admin 30ml/kg IBW due to BMI>30, Admin ABX, Blood cultures prior to ABX's, Focus exam, Lactate level (DEBI SCHWAB MD) Progress/Results/Core Measures Results/Orders Lab Results Laboratory Tests Test 11/16/19 05:15 11/16/19 05:55 11/16/19 06:06 Range/Units White Blood Count 7.0 4.3-11.0 10^3/uL Red Blood Count 3.72 L 4.35-5.85 10^6/uL Hemoglobin 11.3 L 13.3-17.7 G/DL Hematocrit 35 L 40-54 % Mean Corpuscular Volume 93 80-99 FL Mean Corpuscular Hemoglobin 30 25-34 PG Mean Corpuscular Hemoglobin Concent 33 32-36 G/DL Red Cell Distribution Width 13.6 10.0-14.5 % Platelet Count 292 130-400 10^3/uL Mean Platelet Volume 8.9 7.4-10.4 FL Neutrophils (%) (Auto) 96 H 42-75 % Lymphocytes (%) (Auto) 3 L 12-44 % Monocytes (%) (Auto) 1 0-12 % Eosinophils (%) (Auto) 0 0-10 % Basophils (%) (Auto) 0 0-10 % Neutrophils # (Auto) 6.7 1.8-7.8 X 10^3 Lymphocytes # (Auto) 0.2 L 1.0-4.0 X 10^3 Monocytes # (Auto) 0.1 0.0-1.0 X 10^3 Eosinophils # (Auto) 0.0 0.0-0.3 10^3/uL Basophils # (Auto) 0.0 0.0-0.1 10^3/uL Prothrombin Time 15.5 H 12.2-14.7 SEC INR Comment 1.2 0.8-1.4 Activated Partial Thromboplast Time 29 24-35 SEC Sodium Level 142 135-145 MMOL/L Potassium Level 5.3 H 3.6-5.0 MMOL/L Chloride Level 104 98-107 MMOL/L Carbon Dioxide Level 16 L 21-32 MMOL/L Anion Gap 22 H 5-14 MMOL/L Blood Urea Nitrogen 52 H 7-18 MG/DL Creatinine 2.91 H 0.60-1.30 MG/DL Estimat Glomerular Filtration Rate 21 BUN/Creatinine Ratio 18 Glucose Level 117 H 70-105 MG/DL Calcium Level 10.0 8.5-10.1 MG/DL Corrected Calcium 10.5 H 8.5-10.1 MG/DL Magnesium Level 1.6 1.6-2.4 MG/DL Total Bilirubin 0.7 0.1-1.0 MG/DL Aspartate Amino Transf (AST/SGOT) 21 5-34 U/L Alanine Aminotransferase (ALT/SGPT) 56 H 0-55 U/L Alkaline Phosphatase 79 40-136 U/L Total Protein 6.8 6.4-8.2 GM/DL Albumin 3.4 3.2-4.5 GM/DL Amylase Level 68 25-125 U/L Lipase 12 8-78 U/L Urine Color YELLOW Urine Clarity TURBID Urine pH 8.5 5-9 Urine Specific [place] 1.020 1.016-1.022 Urine Protein 3+ H NEGATIVE Urine Glucose (UA) NEGATIVE NEGATIVE Urine Ketones NEGATIVE NEGATIVE Urine Nitrite NEGATIVE NEGATIVE Urine Bilirubin NEGATIVE NEGATIVE Urine Urobilinogen 0.2 < = 1.0 MG/DL Urine Leukocyte Esterase 3+ H NEGATIVE Urine RBC (Auto) 3+ H NEGATIVE Urine RBC 25-50 H /HPF Urine WBC TNTC H /HPF Urine Squamous Epithelial Cells 5-10 /HPF Urine Crystals NONE /LPF Urine Bacteria MODERATE H /HPF Urine Casts NONE /LPF Urine Mucus NEGATIVE /LPF Urine Culture Indicated YES Lactic Acid Level 11.28 *H 0.50-2.00 MMOL/L (DEBI SCHWAB MD) My Orders Orders - DEBI SCHWAB MD Piperacillin Sodium/Tazobactam (Zosyn Vi (11/16/19 07:00) Ns Iv 1000 Ml (Sodium Chloride 0.9%) (11/16/19 07:07) Ekg Tracing (11/16/19 07:33) (DEBI SCHWAB MD) Medications Given in ED Current Medications Medications Dose Ordered Sig/Goldy Route Start Time Stop Time Status Last Admin Dose Admin Ondansetron HCl 8 mg ONCE ONCE IVP 11/16/19 05:30 11/16/19 05:31 DC 11/16/19 05:22 8 MG Pantoprazole 80 mg ONCE ONCE IV 11/16/19 05:30 11/16/19 05:31 DC 11/16/19 05:22 80 MG Piperacillin Sod/ Tazobactam Sod 3.375 gm/Sodium Chloride 100 ml @ 200 mls/hr ONCE ONCE IV 11/16/19 07:00 11/16/19 07:29 DC 11/16/19 07:35 200 MLS/HR (DEBI SCHWAB MD) Vital Signs/I&O 6/03/2711/16/19 11/16/19 05:10 06:26 06:41 Temp 37.2 37.1 37.1 Pulse 130 112 120 Resp 20 21 19 B/P (MAP) 103/60 (74) 129/63 94/59 Pulse Ox 100 99 100 O2 Delivery Room Air Room Air Room Air (DEBI SCHWAB MD) Progress Progress Note : Progress Note PRIOR TO CATHETER CHANGE, PT NOTED TO HAVE BRIGHT RED BLOOD IN URINE AND MODERATE AMOUNT OF BLEEDING FROM URETHRA AFTER CATHETER WAS REMOVED, WITH SMALL CLOT CATHETER REPLACED AND IRRIGATION PERFORMED. RETURN OF BLOOD CLOT AND IMMEDIATE RETURN OF > 500 ML URINE. 0600--CARE TURNED OVER TO DR. KAY, LAB PENDING (ABDON CONKLIN DO) Progress Note : Time: 07:57 Progress Note Care of this patient was assumed from Dr. Conklin at shift change. Patient is presumed to be in septic shock based on intermittent hypotension and extremely high lactic acid. Urine seems to be the source of infection. Empiric therapy with Zosyn was started in the emergency room. We will also include vancomycin after discussion with Dr. Goodman because of patient's recent admission. He has received 2 L of IV fluid along with a partial unit of PRBC. Blood pressure now appears to be stable. Case was discussed with Dr. Allred who agrees to admit the patient since he has been assigned to Dr. Corley at the residential. The severe sepsis order set is being used. Patient was reexamined by me and found to have a nontender abdomen. (DEBI SCHWAB MD) Initial ECG Impression Date: Nov 16, 2019 Initial ECG Impression Time: 07:55 Initial ECG Rate: 122 Initial ECG Rhythm: S.Tach Comment Sinus tachycardia with no ST elevation or depression. No abnormal intervals or axis deviation. (DEBI SCHWAB MD) Diagnostic Imaging Diagonstic Imaging: Xray Plain Films/CT/US/NM/MRI: chest Comments Chest x-ray viewed by me and report reviewed. See report below: NAME: MOISÉS [facility] REC#: [id number] PT STATUS: REG ER : 1945 PHYSICIAN: ABDON CONKLIN DO ADMIT DATE: 11/16/19/ER Draft Date of Exam:11/16/19 CHEST 1 VIEW, AP/PA ONLY INDICATION: Coffee-ground emesis and hypotension COMPARISON: None available. TECHNIQUE: Single radiograph chest dated 11/16/2019 FINDINGS: The cardiac silhouette is within normal limits in size. No significant pulmonary vascular congestion. The lungs are clear. There is no pleural effusion. No pneumothorax. Transversely oriented fracture involving the left humeral neck is identified. Fracture planes appear relatively well-corticated with persisting fracture lucency remaining. No additional fracture. IMPRESSION: Mildly displaced left humeral neck fracture. Given appearance, it is favored that this is chronic in nature and ununited. Recommend clinical correlation and correlation with prior imaging. No acute cardiopulmonary abnormality. Report was called to Mimi/[facility] ER by los at 7:12 AM. Dictated on workstation # [id number] Dict: 11/16/19703 Trans: 11/16/1913 LOS [id number] Interpreted by: GAIL PLUMMER MD (DEBI SCHWAB MD) Departure Communication (Admissions) Time/Spoke to Admitting Phy: 07:40 Dr. Allred Time/Spoke to Consulting Phy: 07:25 Dr. Goodman (DEBI SCHWAB MD) Impression Primary Impression: Septic shock Additional Impressions: Urinary tract infection Qualified Codes: N39.0 - Urinary tract infection, site not specified; R31.9 - Hematuria, unspecified Coffee ground emesis Hematuria Qualified Codes: R31.9 - Hematuria, unspecified Obstruction of urinary catheter Qualified Codes: T83.098A - Other mechanical complication of other urinary catheter, initial encounter Disposition: ADMITTED INPATIENT Condition: Improved Admissions Decision to Admit Reason: Admit from ER (General) Decision to Admit/Date: Nov 16, 2019 Time/Decision to Admit Time: 06:00 (DEBI SCHWAB MD) Departure-Patient Inst. Referrals: UNKNOWN (PCP) Primary Care Physician ABDON CONKLIN DO Nov 16, 2019 05:24 DEBI SCHWAB MD Nov 16, 2019 08:03
[2019-11-16 05:26] LABS: BASOPHILS % (AUTO) 0 % (0-10); EOSINOPHILS % (AUTO) 0 % (0-10); HEMATOCRIT 35 % (40-54); HEMOGLOBIN 11.3 G/DL (13.3-17.7); LYMPHOCYTES # (AUTO) 0.2 X 10^3 (1.0-4.0); LYMPHOCYTES % (AUTO) 3 % (12-44); MEAN CORPUSCULAR HEMOGLOBIN 30 PG (25-34); MEAN CORPUSCULAR HGB CONC 33 G/DL (32-36); MEAN CORPUSCULAR VOLUME 93 FL (80-99); MEAN PLATELET VOLUME 8.9 FL (7.4-10.4); MONOCYTES # (AUTO) 0.1 X 10^3 (0.0-1.0); MONOCYTES % (AUTO) 1 % (0-12); NEUTROPHILS # (AUTO) 6.7 X 10^3 (1.8-7.8); NEUTROPHILS % (AUTO) 96 % (42-75); PLATELET COUNT 292 10^3/uL (130-400); RED CELL DISTRIBUTION WIDTH 13.6 % (10.0-14.5)
[2019-11-16] MEDS ORDERED: PANTOPRAZOLE 40 MG (PROTONIX) VIAL IV ONE (05:30)
[2019-11-16] MEDS ORDERED: ONDANSETRON 4 MG/2 ML (SDV) Z0FRAN IVP ONE (05:30)
[2019-11-16 05:36] LABS: ALBUMIN 3.4 GM/DL (3.2-4.5); POTASSIUM 5.3 MMOL/L (3.6-5.0)
[2019-11-16 05:38] LABS: TOTAL PROTEIN 6.8 GM/DL (6.4-8.2)
[2019-11-16 05:40] LABS: BILIRUBIN,TOTAL 0.7 MG/DL (0.1-1.0)
[2019-11-16 05:42] LABS: CREATININE SERUM 2.91 MG/DL (0.60-1.30)
[2019-11-16 05:45] LABS: MAGNESIUM 1.6 MG/DL (1.6-2.4)
[2019-11-16] MEDS ORDERED: NS IV 500 ML 500 ML ONE (06:08)
[2019-11-16 06:19] LABS: BILIRUBIN,URINE NEGATIVE (NEGATIVE); CLARITY,URINE TURBID; COLOR,URINE YELLOW; GLUCOSE, URINE (UA) NEGATIVE (NEGATIVE); KETONES,URINE NEGATIVE (NEGATIVE); LEUKOCYTE ESTERASE ,URINE 3+ (NEGATIVE); NITRITE,URINE NEGATIVE (NEGATIVE); PH,URINE 8.5 (5-9); PROTEIN,URINE 3+ (NEGATIVE)
[2019-11-16 06:26] LABS: INR 1.2 (0.8-1.4); PROTHROMBIN TIME PATIENT 15.5 SEC (12.2-14.7)
[2019-11-16 06:41] LABS: BACTERIA,URINE MODERATE /HPF; RBC,URINE 25-50 /HPF; WBC,URINE TNTC /HPF
[2019-11-16] MEDS ORDERED: PIPERACILLIN SODIUM/TAZOBACTAM 3.375 GM in NS (IVPB) 100 ML IV ONE (07:00)
--- NOTE | 2019-11-16 07:10 | NUR ---
Report given to Flora RN
--- NOTE | 2019-11-16 07:14 | Diagnostic Imaging Report ---
INDICATION: Coffee-ground emesis and hypotension COMPARISON: None available. TECHNIQUE: Single radiograph chest dated 11/16/2019 FINDINGS: The cardiac silhouette is within normal limits in size. No significant pulmonary vascular congestion. The lungs are clear. There is no pleural effusion. No pneumothorax. Transversely oriented fracture involving the left humeral neck is identified. Fracture planes appear relatively well-corticated with persisting fracture lucency remaining. No additional fracture. IMPRESSION: Mildly displaced left humeral neck fracture. Given appearance, it is favored that this is chronic in nature and ununited. Recommend clinical correlation and correlation with prior imaging. No acute cardiopulmonary abnormality. Report was called to Mimi/[facility] ER by yoko at 7:12 AM. Dictated by: Dictated on workstation # [id number]
--- OUTSIDE RECORDS SUMMARY | 2019-11-16 08:20 | XMS REPORT | Continuity of Care Document ---
[...] gm 11/04/2019 11/14/2019 PRN Q3H Flu vacc [id number] 6mos up(P F)) IM syringe QUAD (Fluarix) [...] MEDIA PLATED Setup at 17:15 on 10/30/2019X [id number] [employer] Position C48 CULTURE SOURCE BLOOD [...] Negative Urine-Blood 1+ Negative Urine-Color Yellow Colorless-Lt. [place] ow Urine-Epithelial Cells 5-10/HPF Urine-Glucose Negative Negative Urine-Ketones Trace Negative Urine-Leukocytes 1+ Negative Urine-Nitrite Negative Negative Urine-Other Urine Saved if Culture Need ed (48hrs from time of collection) Urine-pH 5.5 5-8.5 Urine-Protein Negative Negative Urine-RBC 0-2/HPF Urine-Specific [place] 1.020 1.000-1 .030 Urine-WBC 5-10/HPF Urobilinogen 0.2 [...] 0.2 mg/dL 0.2-1.2 TP 5.1 g/dL 6.0-8.3 Complete blood count (CBC) with automate d white blood cell (WBC) differential - 11/16/19 05:15 Blood leukocytes automated count (number/volume) 7.0 10*3/uL 4.3-11.0 Blood erythrocytes automated count (number/volume) 3.72 10*6/uL 4.35-5.85 Venous blood hemoglobin measurement (mass/volume) 11.3 g/dL 13.3-17.7 Blood hematocrit (volume fraction) 35 % 40-54 Automated erythrocyte mean corpuscular volume 93 [ foz_us] 80-99 Automated erythrocyte mean corpuscular h emoglobin (mass per erythrocyte) 30 pg 25-34 Automated erythrocyte mean corpuscular h emoglobin concentration measurement (mass/volume) 33 g/dL 32-36 Automated erythrocyte distribution width ratio 13. 6 % 10.0- 14.5 Automated blood platelet count (count/volume) 292 10*3/uL 130-400 Automated blood platelet mean volume measurement 8.9 [foz_us] 7.4-10.4 Automated blood neutrophils/100 leukocytes 96 % 42-75 Automated blood lymphocytes/100 leukocytes 3 % 12-44 Blood monocytes/100 leukocytes 1 % 0-12 Automated blood eosinophils/100 leukocytes 0 % 0-10 Automated blood basophils/100 leukocytes 0 % 0-10 Blood neutrophils automated count (number/volume) 6.7 10*3 1.8-7.8 Blood lymphocytes automated count (number/volume) 0.2 10*3 1.0-4.0 Blood monocytes automated count (number/volume) 0. 1 10*3 0.0-1.0 Automated eosinophil count 0.0 10*3/uL 0 .0-0.3 Automated blood basophil count (count/volume) 0.0 10*3/uL 0.0-0.1 Comprehensive metabolic panel - 11/16/19 05:15 Serum or plasma sodium measurement (moles/volume) 142 mmol/L 135-145 Serum or plasma potassium measurement (moles/volume) 5.3 mmol/L 3.6-5.0 Serum or plasma chloride measurement (moles/volume) 104 mmol/L 98-107 Carbon dioxide 16 mmol/L 21-32 Serum or plasma anion gap determination (moles/volume) 22 mmol/L 5-14 Serum or plasma urea nitrogen measurement (mass/volume ) 52 mg/dL 7-18 Serum or plasma creatinine measurement (mass/volume) 2.91 mg/dL 0.60-1.30 Serum or plasma urea nitrogen/creatinine mass ratio 18 NRG Serum or plasma creatinine measurement w ith calculation of estimated glomerular filtration rate 21 NRG Serum or plasma glucose measurement (mass/volume) 117 mg/dL 70-105 Serum or plasma calcium measurement (mass/volume) 10.0 mg/dL 8.5-10.1 Serum or plasma total bilirubin measurement (mass/volu me) 0.7 mg/dL 0.1-1.0 Serum or plasma alkaline phosphatase tere surement (enzymatic activity/volume) 79 U/L 40-136 Serum or plasma aspartate aminotransfera se measurement (enzymatic activity/volume) 21 U/L 5-34 Serum or plasma alanine aminotransferase measurement (enzymatic activity/volume) 56 U/L 0-55 Serum or plasma protein measurement (mass/volume) 6.8 g/dL 6.4-8.2 Serum or plasma albumin measurement (mass/volume) 3.4 g/dL 3.2-4.5 CALCIUM CORRECTED 10.5 mg/dL 8.5-10.1 Magnesium - 11/16/19 05:15 Magnesium 1.6 mg/dL 1.6-2.4 Serum or plasma amylase measurement (enz ymatic activity/volume) - 11/16/19 05:15 Serum or plasma amylase measurement (enzymatic activit y/volume) 68 U/L 25-125 Lipase - 11/16/19 05:15 Lipase 12 U/L 8-78 RED CELLS LEUKO REDUCED AS1 - 11/16/19 0 5:15 RED CELLS LEUKO REDUCED AS1 T RANSFUSED 11/16/19 0614 [facility] Blood type T Indirect antibody screen pa ramy - 11/16/19 05:15 WRISTBAND NUMBER [id number] NR ABO+Rh group AP NRG Blood group antibody screen NEGATIVE NR G PT panel in platelet poor plasma by coag ulation assay - 11/16/19 05:15 Prothrombin time (PT) in platelet poor plasma by coagu lation assay 15.5 s 12.2-14.7 INR in platelet poor plasma or blood by coagulation as say 1.2 0.8-1.4 Activated partial thromboplastin time (a PTT) in platelet poor plasma bycoagulation assay - 11/16/19 05:15 Activated partial thromboplastin time (a PTT) in platelet poor plasma bycoagulation assay 29 s 24-35 Complete urinalysis with reflex to cultu re - 11/16/19 05:55 Urine color determination YELLOW NRG Urine clarity determination TURBID NR G Urine pH measurement by test strip 8.5 5-9 Specific gravity of urine by test strip 1.020 1.016-1.022 Urine protein assay by test strip, semi-quantitative 3+ NEGATIVE Urine glucose detection by automated test strip NE GATIVE NEGATIVE Erythrocytes detection in urine sediment by light micr oscopy 3+ NEGATIVE Urine ketones detection by automated test strip NE GATIVE NEGATIVE Urine nitrite detection by test strip NEGATIVE NEGATIVE Urine total bilirubin detection by test strip NEGA TIVE NEGATIVE Urine urobilinogen measurement by automated test strip (mass/volume) 0.2 mg/dL < = 1.0 Urine leukocyte esterase detection by dipstick 3+ NEGATIVE Automated urine sediment erythrocyte cou nt by microscopy (number/high power field) [HPF] NRG Automated urine sediment leukocyte count by microscopy (number/high power field) TNTC NRG Bacteria detection in urine sediment by light microsco py MODERATE NRG Squamous epithelial cells detection in u rine sediment by light microscopy 5-10 NRG Crystals detection in urine sediment by light microsco py NONE NRG Casts detection in urine sediment by light microscopy NONE NRG Mucus detection in urine sediment by light microscopy NEGATIVE NRG Complete urinalysis with reflex to culture YES NRG Blood lactic acid measurement (moles/vol ume) - 11/16/19 06:06 Blood lactic acid measurement (moles/volume) 11.28 mmol/L 0.50-2.00 Encounters ACCT No. Visit Date/Time Discharge Status Pt. Type Provider Facility Loc./Unit Complaint [id number] 07/19/2018 11:04:42 07/19/2018 23:59: 59 CLS Outpatient [facility] [id number] 01/15/2016 11:22:48 01/15/2016 23:59: 59 CLS Outpatient [facility] [id number] 03/15/2015 09:31:08 03/15/2015 23:59: 59 CLS Outpatient [facility] [id number] 09/12/2014 09:53:01 09/12/2014 23:59: 59 CLS Outpatient [facility] [id number] 07/11/2013 15:17:45 07/11/2013 23:59: 59 CLS Outpatient [facility] [id number] 11/16/2019 05:35:00 Document Registration [id number] 11/04/2019 13:00:00 11/14/2019 09:10 :00 DIS Inpatient DEBI LE [facility] [id number] 10/30/2019 14:40:00 11/04/2019 12:55 :00 DIS Inpatient Priscilla Chavis [facility] ICU [id number] 10/30/2019 15:01:38 Document Registration
[2019-11-16] MEDS ORDERED: VANCOMYCIN 1 GM/NS 250 ML IVPB IV NR ×2 (10:00)
[2019-11-16] MEDS ORDERED: ONDANSETRON 4 MG/2 ML (SDV) Z0FRAN IV PRN (10:00)
--- NOTE | 2019-11-16 10:17 | Pulmonary Consultation ---
History of Present Illness History of Present Illness Date Seen by Provider: Nov 16, 2019 Time Seen by Provider: 10:12 Date of Admission Allergies and Home Medications Allergies Coded Allergies: No Known Drug Allergies (Unverified , 11/16/19) Past Irfuyzh-Qjqrrk-Eyvqrg Hx Patient Social History Alcohol Use: Denies Use Recreational Drug Use: No Smoking Status: Current Everyday Smoker Type Used: Cigarettes 2nd Hand Smoke Exposure: No Recent Foreign Travel: No Contact w/Someone Who Travel: No Recent Infectious Disease Expo: No Recent Hopitalizations: No Immunizations Up To Date Date of Pneumonia Vaccine: November 04, 2019 Seasonal Allergies Seasonal Allergies: No Past Medical History Respiratory: No Cardiac: No Neurological: Yes (DEMENTIA WITH BEHAVIOR DISORDER/SEVERE PSYCHOTIC SYMPTOMS) Dementia Genitourinary: Yes (URINARY RETENTION) Prostate Problems, Renal Failure Gastrointestinal: Yes (NON-TRAUMATIC PERFORATION OF INTESTINE) Chronic Constipation Musculoskeletal: Yes Arthritis Endocrine: No HEENT: No Cancer: No Psychosocial: Yes (DEMENTIA WITH BEHAVIOR DISTURBANCE/SEVERE PSYCHOTIC SYMPTOMS) Sleep Difficulties, Depression Integumentary: No Family Medical History ADDITIONAL PMH: -ANOREXIA -HYPOKALEMIA -NICOTINE DEPENDENCE -NON-COMPLIANCE Review of Systems Time Seen by Provider: 10:18 Sepsis Event Evaluation Height, Weight, BMI Height: '" Weight: lbs. oz. kg; 16.00 BMI Method: Exam Exam Vital Signs Date Time Temp Pulse Resp B/P (MAP) Pulse Ox O2 Delivery O2 Flow Rate FiO2 11/16/19 09:06 37.4 124 22 84/75 (78) 99 Room Air 11/16/19 08:39 120 18 105/60 98 Room Air 11/16/19 08:26 120 18 105/66 Room Air 11/16/19 06:41 37.1 120 19 94/59 100 Room Air 11/16/19 06:26 37.1 112 21 129/63 99 Room Air 11/16/19 05:10 37.2 130 20 103/60 (74) 100 Room Air I & O 11/16/19 07:00 Intake Total 1370 ml Balance 1370 ml Height & Weight Height: '" Weight: lbs. oz. kg; 16.00 BMI Method: Respiratory: Lungs Clear, Normal Breath Sounds Cardiovascular: No Edema, No Murmur, Tachycardia Capillary Refill: Less Than 3 Seconds Peripheral Pulses: 1+ Radial Pulses (L) Gastrointestinal: normal bowel sounds, non tender, soft, other (BLADDER APPEARS TO BE DISTENDED TO LEVEL OF UMBILICUS) Results Lab Laboratory Tests 11/16/19 05:15 Assessment/Plan Assessment/Plan Septic shock -IVF -Continue Monitor UTI with sepsis -Continue Zosyn and vanco -Macario cultures pending Acute renal failure with hyperkalemia -repeat labs at 1300 -IVF Metabolic lactic acidosis -IVF ground glass emesis upon admission -add protonix -Monitor AKI GAVIRIA DO Nov 16, 2019 10:17
[2019-11-16] MEDS: FAMOTIDINE 20MG/2ML IV (PEPCID) IV SCH (11:52)
[2019-11-16] MEDS: NS IV 1000 ML 1,000 ML IV SCH ×3 (11:55→23:26)
[2019-11-16 13:05] LABS: BASOPHILS % (AUTO) 0 % (0-10); EOSINOPHILS % (AUTO) 0 % (0-10); HEMATOCRIT 29 % (40-54); HEMOGLOBIN 9.5 G/DL (13.3-17.7); LYMPHOCYTES # (AUTO) 0.4 X 10^3 (1.0-4.0); LYMPHOCYTES % (AUTO) 3 % (12-44); MEAN CORPUSCULAR HEMOGLOBIN 30 PG (25-34); MEAN CORPUSCULAR HGB CONC 33 G/DL (32-36); MEAN CORPUSCULAR VOLUME 91 FL (80-99); MEAN PLATELET VOLUME 9.6 FL (7.4-10.4); MONOCYTES # (AUTO) 0.8 X 10^3 (0.0-1.0); MONOCYTES % (AUTO) 5 % (0-12); NEUTROPHILS # (AUTO) 13.7 X 10^3 (1.8-7.8); NEUTROPHILS % (AUTO) 92 % (42-75); PLATELET COUNT 220 10^3/uL (130-400); RED CELL DISTRIBUTION WIDTH 14.3 % (10.0-14.5); WHITE BLOOD COUNT 14.9 10^3/uL (4.3-11.0)
[2019-11-16 13:15] LABS: ALBUMIN 2.6 GM/DL (3.2-4.5)
[2019-11-16 13:20] LABS: BILIRUBIN,TOTAL 0.7 MG/DL (0.1-1.0)
[2019-11-16 13:21] LABS: PHOSPHORUS 4.5 MG/DL (2.3-4.7)
[2019-11-16 13:22] LABS: CREATININE SERUM 2.28 MG/DL (0.60-1.30)
[2019-11-16 13:25] LABS: MAGNESIUM 1.6 MG/DL (1.6-2.4)
[2019-11-16 13:31] LABS: BAND NEUTROPHILS 27 %; BASOPHILS % (MANUAL) 0 %; ELLIPT/OVALOCYTES SLIGHT; EOSINOPHILS % (MANUAL) 0 %; LYMPHOCYTES % (MANUAL) 2 %; MONOCYTES % (MANUAL) 2 %; MYELOCYTES % 1 %; NEUTROPHILS % (MANUAL) 68 %
--- NOTE | 2019-11-16 13:53 | NUR ---
"RD ASSESSMENT PMHx: chronic constipation; dementia PT INTERACTION: Note pt has AMS/dementia. Pt was non-communicative during consult for MST score. All information is gathered per chart review. Note unable to determine PO intake. Pt has recent issues with nausea and vomiting. Note unable to determine recent wt hx. Note no BM has been recorded, and pt not currently on bowel regimen. Upon visual exam, pt appears to be undernourished with BMI of 16.8. Given pt's age, this BMI is classified as Underweight. Note unable to determine at this time if pt meets criteria for malnutrition per ASPEN guidelines. ABNORMAL NUTRITION-RELATED LAB VALUES LOW: HIGH: K 5.3; BUN 52; cr 2.91; glu 117; ALT 56 Est. kcal needs: 4294-0784 kcal | 30-35 kcal/kg Est. Pro needs: 55-65 g Pro | 1.0-1.2 g Pro/kg PES STATEMENT: Underweight (NC 3.1) related to suspected inadequate energy intake as evidenced by BMI 16.8 | dementia INTERVENTION: Note pt currently does not have a diet order in place. Would recommend advancing to Clear Liquid diet, and assessing feeding ability before further diet advancement. Advance diet as medically able and as tolerated. Continue with current diet order of Ensure Clear (vary) with meals TID, for increased kcal intake. Provides 250 kcal and 8 g Pro per serving. Will continue to follow and reassess as pt needs, intake, and status change. MONITOR/EVALUATE: PO Intake; Plan of Care; Hydration Status; Weight Status; Lab Values Wai Cowart, MS, RD, LD"
[2019-11-16] MEDS: PIPERACILLIN/TAZO 4.5 GM/NS 100 ML IV SCH ×2 (13:59)
[2019-11-16] MEDS ORDERED: LACTATED RINGERS 1,000 ML IV ONE (16:45)
[2019-11-16] MEDS ORDERED: ENOXAPARIN 40 MG/0.4 ML (LOVENOX) SYR SQ SCH (20:00)
[2019-11-16] MEDS: ENOXAPARIN 30 MG/0.3 ML (LOVENOX) SYR SC SCH (20:17)
--- NOTE | 2019-11-16 22:40 | History & Physical ---
HPI History of Present Illness: 74 yo M that was recently admitted from home to [facility] and discharged to CT that came in the ER with Hematemesis. Spoke with nurse from long term and he was admitted the night prior to arrival. He started having nausea and vomiting that was pinkish in color and his blood pressure was dropping. The recommendation was to bring him to ER for workup. Upon arrival to ER patient was in septic shock with obstructed joseph catheter. They were able to flush the joseph and pus color urine was returned with an additional 500 cc. He was started on high volume fluid replacement and his vital signs stablized and he did not require pressors. This AM patient is awake but not talking much. Denies any pain. Source: patient, long term records Exam Limitations: clinical condition Date seen by provider: Nov 16, 2019 Time Seen by Provider: 09:55 Attending Physician Reba Allred MD PCP Denys Corley MD Consult Date of Admission Nov 16, 2019 at 08:13 Home Medications Home Medications Reviewed patient Home Medication Reconciliation performed by pharmacy medication reconciliations senior radiation protection technician and/or nursing. Patients Allergies have been reviewed. Allergies Coded Allergies: No Known Drug Allergies (Unverified , 11/16/19) GVT-Tkvlft-Zxdcup Hx Patient Social History Living Status: CT Alcohol Use: Denies Use Recreational Drug Use: No Smoking Status: Current Everyday Smoker Type Used: Cigarettes 2nd Hand Smoke Exposure: No Recent Foreign Travel: No Contact w/other who traveled: No Recent Hopitalizations: No Recent Infectious Disease Expo: No Immunizations Up To Date Date of Pneumonia Vaccine: November 04, 2019 Past Medical History Urinary Retention CKD Dementia Family Medical History Significant Family History: No Pertinent Family Hx Other Significan Family Hx: ADDITIONAL PMH: -ANOREXIA -HYPOKALEMIA -NICOTINE DEPENDENCE -NON-COMPLIANCE Review of Systems (CHC) Constitutional: fever, malaise EENTM: no symptoms reported; No mouth pain, No nose congestion, No nose pain Respiratory: no symptoms reported; No cough, No dyspnea on exertion, No short of breath Cardiovascular: no symptoms reported; No chest pain, No edema, No palpitations Gastrointestinal: abdominal pain, loss of appetite, nausea, vomiting Genitourinary: decreased output Musculoskeletal: no symptoms reported; No back pain, No joint pain, No muscle pain Skin: no symptoms reported; No lesions, No rash Psychiatric/Neurological: Weakness Reviewed Test Results Reviewed Test Results Lab Laboratory Tests Test 11/16/19 05:15 11/16/19 05:55 11/16/19 06:06 11/16/19 08:05 Range/Units White Blood Count 7.0 4.3-11.0 10^3/uL Red Blood Count 3.72 L 4.35-5.85 10^6/uL Hemoglobin 11.3 L 13.3-17.7 G/DL Hematocrit 35 L 40-54 % Mean Corpuscular Volume 93 80-99 FL Mean Corpuscular Hemoglobin 30 25-34 PG Mean Corpuscular Hemoglobin Concent 33 32-36 G/DL Red Cell Distribution Width 13.6 10.0-14.5 % Platelet Count 292 130-400 10^3/uL Mean Platelet Volume 8.9 7.4-10.4 FL Neutrophils (%) (Auto) 96 H 42-75 % Lymphocytes (%) (Auto) 3 L 12-44 % Monocytes (%) (Auto) 1 0-12 % Eosinophils (%) (Auto) 0 0-10 % Basophils (%) (Auto) 0 0-10 % Neutrophils # (Auto) 6.7 1.8-7.8 X 10^3 Lymphocytes # (Auto) 0.2 L 1.0-4.0 X 10^3 Monocytes # (Auto) 0.1 0.0-1.0 X 10^3 Eosinophils # (Auto) 0.0 0.0-0.3 10^3/uL Basophils # (Auto) 0.0 0.0-0.1 10^3/uL Prothrombin Time 15.5 H 12.2-14.7 SEC INR Comment 1.2 0.8-1.4 Activated Partial Thromboplast Time 29 24-35 SEC Sodium Level 142 135-145 MMOL/L Potassium Level 5.3 H 3.6-5.0 MMOL/L Chloride Level 104 98-107 MMOL/L Carbon Dioxide Level 16 L 21-32 MMOL/L Anion Gap 22 H 5-14 MMOL/L Blood Urea Nitrogen 52 H 7-18 MG/DL Creatinine 2.91 H 0.60-1.30 MG/DL Estimat Glomerular Filtration Rate 21 BUN/Creatinine Ratio 18 Glucose Level 117 H 70-105 MG/DL Calcium Level 10.0 8.5-10.1 MG/DL Corrected Calcium 10.5 H 8.5-10.1 MG/DL Magnesium Level 1.6 1.6-2.4 MG/DL Total Bilirubin 0.7 0.1-1.0 MG/DL Aspartate Amino Transf (AST/SGOT) 21 5-34 U/L Alanine Aminotransferase (ALT/SGPT) 56 H 0-55 U/L Alkaline Phosphatase 79 40-136 U/L Total Protein 6.8 6.4-8.2 GM/DL Albumin 3.4 3.2-4.5 GM/DL Amylase Level 68 25-125 U/L Lipase 12 8-78 U/L Urine Color YELLOW Urine Clarity TURBID Urine pH 8.5 5-9 Urine Specific [place] 1.020 1.016-1.022 Urine Protein 3+ H NEGATIVE Urine Glucose (UA) NEGATIVE NEGATIVE Urine Ketones NEGATIVE NEGATIVE Urine Nitrite NEGATIVE NEGATIVE Urine Bilirubin NEGATIVE NEGATIVE Urine Urobilinogen 0.2 < = 1.0 MG/DL Urine Leukocyte Esterase 3+ H NEGATIVE Urine RBC (Auto) 3+ H NEGATIVE Urine RBC 25-50 H /HPF Urine WBC TNTC H /HPF Urine Squamous Epithelial Cells 5-10 /HPF Urine Crystals NONE /LPF Urine Bacteria MODERATE H /HPF Urine Casts NONE /LPF Urine Mucus NEGATIVE /LPF Urine Culture Indicated YES Lactic Acid Level 11.28 *H 7.55 *H 0.50-2.00 MMOL/L Test 11/16/19 10:00 11/16/19 12:58 11/16/19 15:10 11/16/19 17:10 Range/Units Lactic Acid Level 5.34 *H 3.94 *H 2.11 *H 2.28 *H 0.50-2.00 MMOL/L White Blood Count 14.9 H 4.3-11.0 10^3/uL Red Blood Count 3.14 L 4.35-5.85 10^6/uL Hemoglobin 9.5 L 13.3-17.7 G/DL Hematocrit 29 L 40-54 % Mean Corpuscular Volume 91 80-99 FL Mean Corpuscular Hemoglobin 30 25-34 PG Mean Corpuscular Hemoglobin Concent 33 32-36 G/DL Red Cell Distribution Width 14.3 10.0-14.5 % Platelet Count 220 130-400 10^3/uL Mean Platelet Volume 9.6 7.4-10.4 FL Neutrophils (%) (Auto) 92 H 42-75 % Lymphocytes (%) (Auto) 3 L 12-44 % Monocytes (%) (Auto) 5 0-12 % Eosinophils (%) (Auto) 0 0-10 % Basophils (%) (Auto) 0 0-10 % Neutrophils # (Auto) 13.7 H 1.8-7.8 X 10^3 Lymphocytes # (Auto) 0.4 L 1.0-4.0 X 10^3 Monocytes # (Auto) 0.8 0.0-1.0 X 10^3 Eosinophils # (Auto) 0.0 0.0-0.3 10^3/uL Basophils # (Auto) 0.0 0.0-0.1 10^3/uL Neutrophils % (Manual) 68 % Lymphocytes % (Manual) 2 % Monocytes % (Manual) 2 % Eosinophils % (Manual) 0 % Basophils % (Manual) 0 % Myelocytes % 1 % Band Neutrophils 27 % Elliptocytes SLIGHT Sodium Level 140 135-145 MMOL/L Potassium Level 5.0 3.6-5.0 MMOL/L Chloride Level 112 H 98-107 MMOL/L Carbon Dioxide Level 16 L 21-32 MMOL/L Anion Gap 12 5-14 MMOL/L Blood Urea Nitrogen 53 H 7-18 MG/DL Creatinine 2.28 H 0.60-1.30 MG/DL Estimat Glomerular Filtration Rate 28 BUN/Creatinine Ratio 23 Glucose Level 115 H 70-105 MG/DL Calcium Level 8.0 L 8.5-10.1 MG/DL Corrected Calcium 9.1 8.5-10.1 MG/DL Phosphorus Level 4.5 2.3-4.7 MG/DL Magnesium Level 1.6 1.6-2.4 MG/DL Total Bilirubin 0.7 0.1-1.0 MG/DL Aspartate Amino Transf (AST/SGOT) 20 5-34 U/L Alanine Aminotransferase (ALT/SGPT) 42 0-55 U/L Alkaline Phosphatase 56 40-136 U/L Total Protein 5.0 L 6.4-8.2 GM/DL Albumin 2.6 L 3.2-4.5 GM/DL Test 11/16/19 19:51 Range/Units Glucometer 118 H 70-110 MG/DL Physical Exam-(CHC) Physical Exam Vital Signs VS - Last 72 Hours, by Label 611/16/19 11/16/19 11/16/19 05:10 06:26 06:41 08:26 Temp 37.2 37.1 37.1 Pulse 130 112 120 120 Resp 20 21 19 18 B/P (MAP) 103/60 (74) 129/63 94/59 105/66 Pulse Ox 100 99 100 O2 Delivery Room Air Room Air Room Air Room Air 11/16/19 11/16/19 11/16/19 11/16/19 08:39 08:45 09:06 10:00 Temp 37.4 Pulse 120 124 121 Resp 18 22 27 B/P (MAP) 105/60 84/75 (78) 97/69 (78) Pulse Ox 98 100 99 98 O2 Delivery Room Air Room Air Room Air Room Air 11/16/19 11/16/19 11/16/19 11/16/19 10:13 11:00 11:00 12:00 Pulse 121 122 114 Resp 23 21 B/P (MAP) 99/55 (70) 99/63 (75) Pulse Ox 100 99 O2 Delivery Room Air Room Air Room Air 11/16/19 11/16/19 11/16/19 11/16/19 12:00 12:00 12:50 13:00 Temp 36.9 Pulse 103 108 Resp 20 B/P (MAP) 127/80 (96) Pulse Ox 100 O2 Delivery Room Air Room Air 11/16/19 11/16/19 11/16/19 11/16/19 14:00 14:00 15:00 16:00 Temp 37.0 Pulse 102 104 Resp 19 20 B/P (MAP) 125/62 (83) 115/67 (83) Pulse Ox 100 O2 Delivery Room Air Room Air Room Air 11/16/19 11/16/19 11/16/19 11/16/19 16:00 16:00 16:00 17:00 Pulse 96 101 Resp 16 22 B/P (MAP) 108/62 (77) 120/60 (80) Pulse Ox 100 100 O2 Delivery Room Air Room Air Room Air Room Air 11/16/19 11/16/19 11/16/19 11/16/19 18:00 19:00 19:00 19:36 Temp 36.5 Pulse 93 93 93 Resp 7 19 B/P (MAP) 124/76 (92) 114/70 (85) O2 Delivery Room Air Room Air 11/16/19 11/16/19 11/16/19 11/16/19 20:00 20:00 21:00 22:00 Pulse 85 84 84 Resp 17 17 B/P (MAP) 100/59 (73) 124/67 (86) 131/57 (81) Pulse Ox 100 O2 Delivery Room Air Room Air Room Air Room Air Capillary Refill : Less Than 3 Seconds General Appearance: no apparent distress, thin HEENT: PERRL/EOMI Neck: full range of motion, supple Respiratory: chest non-tender, lungs clear, normal breath sounds, no respiratory distress, no accessory muscle use Cardiovascular: normal peripheral pulses, regular rate, rhythm, no murmur Gastrointestinal: normal bowel sounds, soft, tenderness (suprapubic pain) Back: no CVA tenderness, no vertebral tenderness Extremities: normal range of motion, non-tender, normal inspection, no pedal edema, no calf tenderness, normal capillary refill Neurologic/Psychiatric: mac artist II-XII nml as tested, no motor/sensory deficits, alert Skin: pallor Lymphatic: no adenopathy Assessment/Plan Assessment/Plan Admission Status: Inpatient Order (span 2 midnights) Reason for Inpatient Admission: Patient in septic shock requiring high volume fluid resuscitation and IV antibiotics he is elderly and will likely require several days to stablize (1) Septic shock Status: Acute Assessment & Plan: - Completed high volume fluid resuscitation, IV antibiotics Zosyn/Vanc, cultures pending, HDS at this time (2) Urinary tract infection Status: Acute Qualifiers: Qualified Codes: N39.0 - Urinary tract infection, site not specified; R31.9 - Hematuria, unspecified (3) Hematuria Status: Acute Qualifiers: Qualified Codes: R31.9 - Hematuria, unspecified (4) Normocytic anemia Status: Acute Assessment & Plan: - Patient received 1 unit pRBCs in ER, will continue to monitor Hgb, Continue IV Protonix (5) Acute on chronic kidney failure Status: Acute Assessment & Plan: - Will continue to monitor after hydration Qualifiers: Qualified Codes: N17.9 - Acute kidney failure, unspecified; N18.9 - Chronic kidney disease, unspecified (6) Coffee ground emesis Status: Acute (7) Obstruction of urinary catheter Status: Acute Assessment & Plan: - Draining blood tinged urine Qualifiers: Qualified Codes: T83.098A - Other mechanical complication of other urinary catheter, initial encounter (8) Debility Status: Acute Assessment & Plan: - PT/OT (9) DVT prophylaxis Status: Acute Assessment & Plan: - SCDs given Upper GI bleed Clinical Quality Measures DVT/VTE Risk/Contraindication: Risk Factor Score Per Nursin RFS Level Per Nursing on Admit: 3=High Copy Copies To 1: DENYS CORLEY MD, HOLLY R MD Nov 16, 2019 22:40
[2019-11-17] VITALS (9 sets, daily range): BP systolic 93–130; BP diastolic 45–67
[2019-11-17] MEDS: PIPERACILLIN/TAZO 4.5 GM/NS 100 ML IV SCH ×8 (01:35→21:03)
[2019-11-17 03:02] LABS: BASOPHILS % (AUTO) 0 % (0-10); EOSINOPHILS % (AUTO) 0 % (0-10); HEMATOCRIT 25 % (40-54); HEMOGLOBIN 8.5 G/DL (13.3-17.7); LYMPHOCYTES # (AUTO) 0.4 X 10^3 (1.0-4.0); LYMPHOCYTES % (AUTO) 4 % (12-44); MEAN CORPUSCULAR HEMOGLOBIN 31 PG (25-34); MEAN CORPUSCULAR HGB CONC 34 G/DL (32-36); MEAN CORPUSCULAR VOLUME 91 FL (80-99); MEAN PLATELET VOLUME 9.8 FL (7.4-10.4); MONOCYTES # (AUTO) 0.5 X 10^3 (0.0-1.0); MONOCYTES % (AUTO) 4 % (0-12); NEUTROPHILS # (AUTO) 11.4 X 10^3 (1.8-7.8); NEUTROPHILS % (AUTO) 92 % (42-75); PLATELET COUNT 198 10^3/uL (130-400); RED CELL DISTRIBUTION WIDTH 14.3 % (10.0-14.5); WHITE BLOOD COUNT 12.3 10^3/uL (4.3-11.0)
[2019-11-17 03:18] LABS: POTASSIUM 4.5 MMOL/L (3.6-5.0)
[2019-11-17 03:19] LABS: CALCIUM 7.9 MG/DL (8.5-10.1)
[2019-11-17 03:23] LABS: PHOSPHORUS 4.8 MG/DL (2.3-4.7)
[2019-11-17 03:24] LABS: CREATININE SERUM 1.59 MG/DL (0.60-1.30)
[2019-11-17 03:26] LABS: MAGNESIUM 1.8 MG/DL (1.6-2.4)
[2019-11-17] MEDS: KCL 20 MEQ TAB (K-DUR) PO SCH (03:48)
--- NOTE | 2019-11-17 05:42 | Pulmonary Progress Note ---
Subjective Date Seen by a Provider: Nov 17, 2019 Time Seen by a Provider: 05:39 Subjective/Events-last exam Pt is doing much better. Sepsis Event Evaluation Height, Weight, BMI Height: '" Weight: lbs. oz. kg; 16.00 BMI Method: Focused Exam Lactate Level 11/16/19 15:10: Lactic Acid Level 2.11*H 11/16/19 17:10: Lactic Acid Level 2.28*H 11/17/19 02:50: Lactic Acid Level 0.73 Time of Focused Exam: 07:30 Lactic Acid Level Laboratory Tests Test 11/17/19 02:50 Lactic Acid Level 0.73 MMOL/L (0.50-2.00) Exam Exam Vital Signs Date Time Temp Pulse Resp B/P (MAP) Pulse Ox O2 Delivery O2 Flow Rate FiO2 11/17/19 05:00 77 17 117/66 (83) Room Air 11/17/19 04:14 36.4 11/17/19 04:00 76 17 98/53 (68) Room Air 11/17/19 04:00 100 Room Air 11/17/19 03:00 84 20 128/59 (82) Room Air 11/17/19 02:00 77 17 98/45 (62) Room Air 11/17/19 01:30 84 19 130/66 (87) Room Air 11/17/19 01:00 82 11/17/19 00:10 36.8 11/17/19 00:00 100 Room Air 11/17/19 00:00 77 16 120/66 (84) Room Air 11/16/19 23:00 85 18 123/62 (82) Room Air 11/16/19 22:00 84 131/57 (81) Room Air 11/16/19 21:00 84 17 124/67 (86) Room Air 11/16/19 20:00 100 Room Air 11/16/19 20:00 85 17 100/59 (73) Room Air 11/16/19 19:36 36.5 11/16/19 19:00 93 19 114/70 (85) Room Air 11/16/19 19:00 93 11/16/19 18:00 93 7 124/76 (92) Room Air 11/16/19 17:00 101 22 120/60 (80) Room Air 11/16/19 16:00 100 Room Air 11/16/19 16:00 96 16 108/62 (77) Room Air 11/16/19 16:00 100 Room Air 11/16/19 16:00 37.0 11/16/19 15:00 104 20 115/67 (83) Room Air 11/16/19 14:00 102 19 125/62 (83) Room Air 11/16/19 14:00 100 Room Air 11/16/19 13:00 108 20 127/80 (96) Room Air 11/16/19 12:50 103 11/16/19 12:00 100 Room Air 11/16/19 12:00 36.9 11/16/19 12:00 114 21 99/63 (75) Room Air 11/16/19 11:00 122 23 99/55 (70) 99 Room Air 11/16/19 11:00 100 Room Air 11/16/19 10:13 121 11/16/19 10:00 121 27 97/69 (78) 98 Room Air 11/16/19 09:06 37.4 124 22 84/75 (78) 99 Room Air 11/16/19 08:45 100 Room Air 11/16/19 08:39 120 18 105/60 98 Room Air 11/16/19 08:26 120 18 105/66 Room Air 11/16/19 06:41 37.1 120 19 94/59 100 Room Air 11/16/19 06:26 37.1 112 21 129/63 99 Room Air I & O 11/17/19 07:00 Intake Total 32510 ml Output Total 2975 ml Balance 8805 ml Height & Weight Height: '" Weight: lbs. oz. kg; 16.00 BMI Method: General Appearance: No Apparent Distress, WD/WN HEENT: PERRL/EOMI, Normal ENT Inspection, Pharynx Normal Neck: Full Range of Motion, Normal Inspection, Supple Respiratory: Lungs Clear, Normal Breath Sounds Cardiovascular: No Edema, No Murmur, Tachycardia Capillary Refill: Less Than 3 Seconds Peripheral Pulses: 1+ Radial Pulses (L) Gastrointestinal: normal bowel sounds, soft, tenderness (suprapubic pain) Extremity: Normal Capillary Refill, Normal Range of Motion, No Pedal Edema Neurologic/Psychiatric: Alert, Oriented x3 Skin: Normal Color, Warm/Dry Lymphatic: No Adenopathy Results Lab Laboratory Tests 11/16/19 05:15 11/16/19 12:58 11/17/19 02:50 Assessment/Plan Assessment/Plan Septic shock - improving -IVF -Continue Monitor UTI with sepsis - Zosyn and vanco -Macario cultures pending Acute renal failure - Improving -IVF Metabolic lactic acidosis - improving -IVF Anemia -Monitor AKI GAVIRIA DO Nov 17, 2019 05:42
--- NOTE | 2019-11-17 05:55 | Diagnostic Imaging Report ---
EXAMINATION: Portable erect AP chest at 3:32 AM INDICATION: Septic shock This exam is less than optimal as the patient is rotated. Allowing for this technical factor, the heart is stable in size when compared to the prior exam of 11/16/2019. In the interval since the prior study a vague area of slightly increased density has developed in the right upper lung. This may be secondary to the rotation of the patient. It would be less likely that there is developing pneumonia/atelectasis in this area. Even so, clinical follow-up is recommended. The lungs are otherwise generally clear. The mediastinum is not widened. The osseous structures are intact. The incompletely healed fracture of the proximal left humerus seen previously is again evident. IMPRESSION: 1. The vague area of increased density overlying the right upper lung is more likely due to superimposition and rotation than to pneumonia. Even so, clinical follow-up is recommended. 2. The overall appearance of the chest is otherwise stable. Dictated by: Dictated on workstation # [id number]
[2019-11-17] MEDS ORDERED: MAGNESIUM 1 GM/100 ML IVPB 100 ML IV SCH (06:00)
[2019-11-17] MEDS ORDERED: POTASSIUM CL 10MEQ/50ML IVPB 50 ML IV SCH (06:00)
--- NOTE | 2019-11-17 06:20 | NUR ---
Transfer from ICU to room 420 via bed accompanied by Elijah,RN & MLAURA Jackson. Awake and oriented x 1. Bed alarm in place. Gown changed. Will continue to monitor.
[2019-11-17] MEDS: NS IV 1000 ML 1,000 ML IV SCH ×3 (06:30→20:25)
[2019-11-17] MEDS ORDERED: MEGE20TA3 PO (07:55)
[2019-11-17] MEDS ORDERED: PARO20TA5 PO (07:55)
[2019-11-17] MEDS ORDERED: POTA10TA36 PO (07:55)
[2019-11-17] MEDS ORDERED: TMSL.4C PO (07:55)
[2019-11-17] MEDS ORDERED: ONDN4T PO (07:55)
[2019-11-17] MEDS ORDERED: NICO-586 TD (07:55)
[2019-11-17] MEDS ORDERED: LACT10SO PO (07:55)
[2019-11-17] MEDS ORDERED: QUET25TA73 PO (07:55)
--- NOTE | 2019-11-17 07:56 | NUR ---
I ENTERED THE MED REC USING THE MAR FROM [facility] WHEN I SPOKE WITH THE FACILITY THEY LET ME KNOW THE PT JUST BECAME A RESIDENT THERE AND BEFORE THAT HE WAS STAYING AT [facility]. ACCORDING TO HIS NURSE ALL MEDICATIONS MAY HAVE NOT BEEN STARTED BUT I DID COMPLETE THE MED REC USING THEIR MAR DUE TO THE FACT THAT THEY ARE EXPECTING HIM TO RETURN UPON DISCHARGE
[2019-11-17] MEDS: PANTOPRAZOLE 40 MG (PROTONIX) VIAL IV SCH (08:36)
[2019-11-17] MEDS: FAMOTIDINE 20MG/2ML IV (PEPCID) IV SCH (08:36)
--- NOTE | 2019-11-17 08:47 | Physician Query Clarification ---
PQ-Link Infection to Dev/Proc Admission/Discharge Admission Date: Nov 16, 2019 at 08:13 Discharge Date: The medical record reflects the following clinical scenario: History/Risk Factors: Severe sepsis with septic shock UTI Indwelling joseph catheter Clinical Findings: Obstructed joseph catheter. They were able to flush the joseph and pus color urine was returned with additional 500cc. Preliminary blood culture-Proteus species. Treatment: IV Zosyn 3.375gm and IV Vancomycin HCI 1,000mg. Question: Can you specify if the Severe sepsis with septic shock is due to/associated with indwelling urinary catheter? Please document a response in Progress Note or Discharge Summary. 1. Yes - [infection] is due to/associated with [device or procedure]. 2. No - [infection] is not due to/associated with [device or procedure]. 3. Other, with explanation of the clinical findings. 4. Clinically undetermined, no explanation for the clinical findings. PHYSICIAN RESPONSE Specify if infection: 1 Explanation of clincal finding Joseph was obstructed at facility which likely lead to UTI Please remember a lack of response to the above will prompt a phone page by CDI/Coding staff. In responding to this query, please exercise your independent professional judgment. The purpose of this communication is to more accurately reflect the complexity of your patients condition. The fact that a question is asked does not imply that any particular answer is desired or expected. Thank you for your timely response to this clarification. Requestors name: Alisia Oseguera [facility] Phone # ext [phone] or [phone] THIS PHYSICIAN QUERY FORM IS A PERMANENT PART OF THE MEDICAL RECORD ALISIA OSEGUERA Nov 17, 2019 08:47 RON LEON MD Nov 17, 2019 22:42
[2019-11-17] MEDS ORDERED: VANCOMYCIN 750 MG/NS 250 ML IVPB IV SCH ×2 (10:00)
--- NOTE | 2019-11-17 15:30 | NUR ---
Pastoral care visit.
[2019-11-17] MEDS: ENOXAPARIN 30 MG/0.3 ML (LOVENOX) SYR SC SCH ×2 (21:03→21:05)
--- NOTE | 2019-11-17 22:05 | Progress Note ---
Subjective Subjective/Events-last exam Patient more alert this AM. States that he feels much better. Denies any N/V ON. Tolerating PO diet. Review of Systems General: Fatigue Pulmonary: No Dyspnea, No Cough Cardiovascular: No: Chest Pain, Palpitations Gastrointestinal: No: Nausea, Vomiting, Abdominal Pain Neurological: Weakness, Incoordination Focused Exam Lactate Level 11/16/19 15:10: Lactic Acid Level 2.11*H 11/16/19 17:10: Lactic Acid Level 2.28*H 11/17/19 02:50: Lactic Acid Level 0.73 Time of Focused Exam: 07:30 Objective Exam Last Set of Vital Signs Vital Signs Date Time Temp Pulse Resp B/P (MAP) Pulse Ox O2 Delivery O2 Flow Rate FiO2 11/17/19 19:00 71 11/17/19 09:04 99 Room Air 11/17/19 08:58 36.8 20 125/64 (84) Capillary Refill : Less Than 3 SecondsLess Than 3 Seconds I&O Intake and Output 11/17/19 00:00 Intake Total 08269 ml Output Total 2625 ml Balance 8525 ml Intake Oral 780 ml IV Total 41974 ml Other 370 ml Output Urine Total 2625 ml Daily Weight Change Yes, Unsure # of lbs General: Alert, Other (thin elderly male) HEENT: Other (dry MM) Lungs: Clear to Auscultation, Normal Air Movement Heart: Regular Rate, No Murmurs Abdomen: Normal Bowel Sounds, Soft, No Tenderness, No Masses Extremities: No Edema, No Tenderness/Swelling Skin: No Rashes, No Breakdown Neuro: Normal Speech, Cranial Nerves 3-12 NL Results/Procedures Lab Laboratory Tests 11/17/19 02:50: White Blood Count 12.3H, Red Blood Count 2.77L, Hemoglobin 8.5L, Hematocrit 25L, Mean Corpuscular Volume 91, Mean Corpuscular Hemoglobin 31, Mean Corpuscular Hemoglobin Concent 34, Red Cell Distribution Width 14.3, Platelet Count 198, Mean Platelet Volume 9.8, Neutrophils (%) (Auto) 92H, Lymphocytes (%) (Auto) 4L, Monocytes (%) (Auto) 4, Eosinophils (%) (Auto) 0, Basophils (%) (Auto) 0, Neutrophils # (Auto) 11.4H, Lymphocytes # (Auto) 0.4L, Monocytes # (Auto) 0.5, Eosinophils # (Auto) 0.0, Basophils # (Auto) 0.0, Sodium Level 141, Potassium Level 4.5, Chloride Level 115H, Carbon Dioxide Level 18L, Anion Gap 8, Blood Urea Nitrogen 46H, Creatinine 1.59H, Estimat Glomerular Filtration Rate 43, BUN/Creatinine Ratio 29, Glucose Level 99, Lactic Acid Level 0.73, Calcium Level 7.9L, Phosphorus Level 4.8H, Magnesium Level 1.8 11/17/19 06:27: Lab Scanned Report Transfusion Reaction Form Microbiology 11/16/19 MRSA Screen - Final, Complete MRSA not isolated 11/16/19 Blood Culture - Preliminary, Resulted Proteus mirabilis 11/16/19 Urine Culture - Final, Complete Proteus mirabilis Assessment/Plan Assessment/Plan (1) Bacteremia Status: Acute Assessment & Plan: - Blood cultures + Proteus, Will stop Vancomycin (2) Septic shock Status: Resolved Assessment & Plan: - Completed high volume fluid resuscitation, IV antibiotics Zosyn/Vanc, cultures pending, HDS at this time 11/16: Shock resolved, will decrease fluids and push PO hydration and continue to monitor (3) Urinary tract infection Status: Acute Qualifiers: Qualified Codes: N39.0 - Urinary tract infection, site not specified; R31.9 - Hematuria, unspecified (4) Hematuria Status: Acute Qualifiers: Qualified Codes: R31.9 - Hematuria, unspecified (5) Normocytic anemia Status: Acute Assessment & Plan: - Patient received 1 unit pRBCs in ER, will continue to monitor Hgb, Continue IV Protonix 11/16: Hgb stable (6) Acute on chronic kidney failure Status: Acute Assessment & Plan: - Will continue to monitor after hydration 11/16: Cr much improved today Qualifiers: Qualified Codes: N17.9 - Acute kidney failure, unspecified; N18.9 - Chronic kidney disease, unspecified (7) Coffee ground emesis Status: Acute (8) Obstruction of urinary catheter Status: Acute Assessment & Plan: - Draining blood tinged urine Qualifiers: Qualified Codes: T83.098A - Other mechanical complication of other urinary catheter, initial encounter (9) Debility Status: Acute Assessment & Plan: - PT/OT (10) DVT prophylaxis Status: Acute Assessment & Plan: - SCDs given Upper GI bleed Clinical Quality Measures DVT/VTE Risk/Contraindication: Risk Factor Score Per Nursin RFS Level Per Nursing on Admit: 3=High RON LEON MD Nov 17, 2019 22:05
[2019-11-18] VITALS: BP 119/65
[2019-11-18] MEDS: PIPERACILLIN/TAZO 4.5 GM/NS 100 ML IV SCH ×2 (01:40)
--- NOTE | 2019-11-18 03:20 | NUR ---
DR. LEON NOTIFIED OF PT'S INCREASING AGITATION AND PULLING ON CATHETER AND PULLING IV'S OUT. NEW ORDERS RECEIVED FOR ATIVAN 0.5MG IV Q8H PRN AND HALDOL 5MG IM Q4PRN FOR AGITATION. WILL CONTINUE TO MONITOR.
[2019-11-18] MEDS: LORazepam INJ 2 MG/ML (ATIVAN) VIAL IVP PRN ×2 (03:34→20:35)
[2019-11-18 04:00] VITALS: BP 125/66
[2019-11-18] MEDS: HALOPERIDOL 5 MG/ML (HALDOL) AMP IM PRN ×3 (04:11→23:57)
[2019-11-18 06:57] LABS: BASOPHILS % (AUTO) 0 % (0-10); EOSINOPHILS % (AUTO) 0 % (0-10); HEMATOCRIT 27 % (40-54); HEMOGLOBIN 8.8 G/DL (13.3-17.7); LYMPHOCYTES # (AUTO) 0.6 X 10^3 (1.0-4.0); LYMPHOCYTES % (AUTO) 6 % (12-44); MEAN CORPUSCULAR HEMOGLOBIN 30 PG (25-34); MEAN CORPUSCULAR HGB CONC 33 G/DL (32-36); MEAN CORPUSCULAR VOLUME 93 FL (80-99); MEAN PLATELET VOLUME 10.6 FL (7.4-10.4); MONOCYTES # (AUTO) 0.6 X 10^3 (0.0-1.0); MONOCYTES % (AUTO) 6 % (0-12); NEUTROPHILS # (AUTO) 8.8 X 10^3 (1.8-7.8); NEUTROPHILS % (AUTO) 88 % (42-75); PLATELET COUNT 175 10^3/uL (130-400); RED CELL DISTRIBUTION WIDTH 14.3 % (10.0-14.5)
[2019-11-18 07:06] LABS: CHLORIDE 115 MMOL/L (98-107); POTASSIUM 3.7 MMOL/L (3.6-5.0); SODIUM 140 MMOL/L (135-145)
[2019-11-18 07:07] LABS: CALCIUM 7.9 MG/DL (8.5-10.1)
[2019-11-18 07:08] LABS: GLUCOSE 105 MG/DL (70-105)
[2019-11-18 07:09] LABS: CARBON DIOXIDE 16 MMOL/L (21-32)
[2019-11-18 07:12] LABS: CREATININE SERUM 1.17 MG/DL (0.60-1.30); GFR ESTIMATED > 60; PHOSPHORUS 2.8 MG/DL (2.3-4.7)
[2019-11-18 07:13] LABS: BUN/CREATININE RATIO 30
[2019-11-18 07:14] LABS: MAGNESIUM 1.9 MG/DL (1.6-2.4)
[2019-11-18] MEDS: KCL 20 MEQ TAB (K-DUR) PO SCH (07:25)
[2019-11-18 08:00] VITALS: BP 117/60
[2019-11-18] MEDS: FAMOTIDINE 20MG/2ML IV (PEPCID) IV SCH (08:52)
[2019-11-18] MEDS: PANTOPRAZOLE 40 MG (PROTONIX) VIAL IV SCH (08:52)
[2019-11-18] MEDS ORDERED: cefTRIAXone 1,000 MG/SWFI 10 ML IV PUSH IV SCH ×2 (10:00)
--- NOTE | 2019-11-18 10:35 | Progress Note ---
Subjective Subjective/Events-last exam Patient sleeping this AM. Very agitated overnight. Review of Systems Pulmonary: No Dyspnea, No Cough Cardiovascular: Edema; No: Chest Pain Gastrointestinal: No: Nausea, Vomiting Neurological: Weakness, Incoordination, Confusion Focused Exam Lactate Level 11/16/19 15:10: Lactic Acid Level 2.11*H 11/16/19 17:10: Lactic Acid Level 2.28*H 11/17/19 02:50: Lactic Acid Level 0.73 Time of Focused Exam: 07:30 Objective Exam Last Set of Vital Signs Vital Signs Date Time Temp Pulse Resp B/P (MAP) Pulse Ox O2 Delivery O2 Flow Rate FiO2 11/18/19 08:00 99 Room Air 11/18/19 08:00 36.8 63 18 117/60 (79) Capillary Refill : Less Than 3 SecondsLess Than 3 Seconds I&O Intake and Output 11/18/19 00:00 Intake Total 59897 ml Output Total 1625 ml Balance 43382 ml Intake Oral 1480 ml IV Total 29150 ml Output Urine Total 1625 ml # Bowel Movements 1 General: Other (Awakes to name, disoriented) Lungs: Clear to Auscultation, Normal Air Movement Heart: Regular Rate, No Murmurs Abdomen: Normal Bowel Sounds, Soft, No Tenderness, No Masses Extremities: No Edema, No Tenderness/Swelling Results/Procedures Lab Laboratory Tests 11/18/19 06:33: White Blood Count 10.0, Red Blood Count 2.89L, Hemoglobin 8.8L, Hematocrit 27L, Mean Corpuscular Volume 93, Mean Corpuscular Hemoglobin 30, Mean Corpuscular Hemoglobin Concent 33, Red Cell Distribution Width 14.3, Platelet Count 175, Mean Platelet Volume 10.6H, Neutrophils (%) (Auto) 88H, Lymphocytes (%) (Auto) 6L, Monocytes (%) (Auto) 6, Eosinophils (%) (Auto) 0, Basophils (%) (Auto) 0, Neutrophils # (Auto) 8.8H, Lymphocytes # (Auto) 0.6L, Monocytes # (Auto) 0.6, Eosinophils # (Auto) 0.0, Basophils # (Auto) 0.0, Sodium Level 140, Potassium Level 3.7, Chloride Level 115H, Carbon Dioxide Level 16L, Anion Gap 9, Blood Urea Nitrogen 35H, Creatinine 1.17, Estimat Glomerular Filtration Rate > 60, BUN/Creatinine Ratio 30, Glucose Level 105, Calcium Level 7.9L, Phosphorus Level 2.8, Magnesium Level 1.9 Microbiology 11/16/19 MRSA Screen - Final, Complete MRSA not isolated 11/16/19 Blood Culture - Preliminary, Resulted Proteus mirabilis 11/16/19 Urine Culture - Final, Complete Proteus mirabilis Assessment/Plan Assessment/Plan (1) Bacteremia Status: Acute Assessment & Plan: - Blood cultures + Proteus, Will stop Vancomycin 11/17: Continue IV antibiotics (2) Delirium Status: Acute Assessment & Plan: 11/17: Gave haldol overnight, resting comfortably this AM (3) Septic shock Status: Resolved Assessment & Plan: - Completed high volume fluid resuscitation, IV antibiotics Zosyn/Vanc, cultures pending, HDS at this time 11/16: Shock resolved, will decrease fluids and push PO hydration and continue to monitor (4) Urinary tract infection Status: Acute Qualifiers: Qualified Codes: N39.0 - Urinary tract infection, site not specified; R31.9 - Hematuria, unspecified (5) Hematuria Status: Acute Qualifiers: Qualified Codes: R31.9 - Hematuria, unspecified (6) Normocytic anemia Status: Acute Assessment & Plan: - Patient received 1 unit pRBCs in ER, will continue to monitor Hgb, Continue IV Protonix 11/16: Hgb stable 11/17: Hgb improved (7) Acute on chronic kidney failure Status: Acute Assessment & Plan: - Will continue to monitor after hydration 11/16: Cr much improved today 11/17: Normal Cr this AM Qualifiers: Qualified Codes: N17.9 - Acute kidney failure, unspecified; N18.9 - Chronic kidney disease, unspecified (8) Coffee ground emesis Status: Acute (9) Obstruction of urinary catheter Status: Acute Assessment & Plan: - Draining blood tinged urine Qualifiers: Qualified Codes: T83.098A - Other mechanical complication of other urinary catheter, initial encounter (10) Debility Status: Acute Assessment & Plan: - PT/OT (11) DVT prophylaxis Status: Acute Assessment & Plan: - SCDs given Upper GI bleed Clinical Quality Measures DVT/VTE Risk/Contraindication: Risk Factor Score Per Nursin RFS Level Per Nursing on Admit: 3=High RON LEON MD Nov 18, 2019 10:35
--- NOTE | 2019-11-18 13:15 | NUR ---
PARISH/TYLER visited with the patient for discharge planning. Plan: The patient will discharge back to [facility] tomorrow 11/18. PARISH/TYLER contacted Diana from the facility and informed her of patients planned discharge. She stated that the Primary care nurse will just need to call the facility and ask for Danika. The skilled orders will need to be faxed to [phone]. PARISH/TYLER typed out instructions and provided it to the floor hand and patients nurse. They verbalized understanding. CYNTHIA visited with the patient to inform him of discharge back to facility. He only said 1 word during the visit but appeared to understand due to him shaking his head. The patient is requiring a sitter. PARISH/TYLER attempted to contact the patients sister Nakita that is listed on face sheet; however, she did not answer. PARISH/TYLER left a message with a call back number.
[2019-11-18 15:12] VITALS: BP 158/65
[2019-11-18 19:38] VITALS: BP 134/65
[2019-11-18] MEDS: ENOXAPARIN 30 MG/0.3 ML (LOVENOX) SYR SC SCH (20:35)
[2019-11-18] MEDS ORDERED: cefTRIAXone FOR IV USE 1,000 MG in WATER (STERILE) FOR INJECTION 10 ML IV SCH ×4 (21:00)
[2019-11-18] MEDS: NS IV 1000 ML 1,000 ML IV SCH (22:19)
--- NOTE | 2019-11-19 | NUR ---
PT AGITATED AND AGGRESSIVE AT THIS TIME. UNABLE TO OBTAIN VITAL SIGNS.
[2019-11-19] MEDS: NS IV 1000 ML 1,000 ML IV SCH (00:02)
[2019-11-19 04:00] VITALS: BP 129/72
[2019-11-19] MEDS: LORazepam INJ 2 MG/ML (ATIVAN) VIAL IVP PRN (04:10)
[2019-11-19] MEDS: HALOPERIDOL 5 MG/ML (HALDOL) AMP IM PRN (04:11)
[2019-11-19] MEDS: KCL 20 MEQ TAB (K-DUR) PO SCH (06:00)
[2019-11-19 06:08] LABS: BASOPHILS % (AUTO) 0 % (0-10); EOSINOPHILS # (AUTO) 0.1 10^3/uL (0.0-0.3); EOSINOPHILS % (AUTO) 1 % (0-10); HEMATOCRIT 28 % (40-54); HEMOGLOBIN 9.2 G/DL (13.3-17.7); LYMPHOCYTES # (AUTO) 0.6 X 10^3 (1.0-4.0); LYMPHOCYTES % (AUTO) 10 % (12-44); MEAN CORPUSCULAR HEMOGLOBIN 31 PG (25-34); MEAN CORPUSCULAR HGB CONC 33 G/DL (32-36); MEAN CORPUSCULAR VOLUME 93 FL (80-99); MEAN PLATELET VOLUME 10.7 FL (7.4-10.4); MONOCYTES # (AUTO) 0.7 X 10^3 (0.0-1.0); MONOCYTES % (AUTO) 11 % (0-12); NEUTROPHILS # (AUTO) 4.9 X 10^3 (1.8-7.8); NEUTROPHILS % (AUTO) 79 % (42-75); PLATELET COUNT 183 10^3/uL (130-400); RED CELL DISTRIBUTION WIDTH 13.5 % (10.0-14.5); WHITE BLOOD COUNT 6.2 10^3/uL (4.3-11.0)
[2019-11-19 06:21] LABS: CHLORIDE 116 MMOL/L (98-107); SODIUM 143 MMOL/L (135-145)
[2019-11-19 06:22] LABS: CALCIUM 7.9 MG/DL (8.5-10.1)
[2019-11-19 06:23] LABS: GLUCOSE 83 MG/DL (70-105)
[2019-11-19 06:24] LABS: CARBON DIOXIDE 19 MMOL/L (21-32)
[2019-11-19 06:26] LABS: CREATININE SERUM 1.07 MG/DL (0.60-1.30); GFR ESTIMATED > 60; PHOSPHORUS 2.9 MG/DL (2.3-4.7)
[2019-11-19 06:27] LABS: BUN/CREATININE RATIO 25
[2019-11-19 06:29] LABS: MAGNESIUM 1.9 MG/DL (1.6-2.4)
--- NOTE | 2019-11-19 07:07 | Diagnostic Imaging Report ---
INDICATION: Septic shock and urinary tract infection as well as dyspnea. TIME OF EXAM: 3:27 AM Correlation is made with prior chest from 11/17/2019. FINDINGS: Heart size is stable. There are some mild congestive changes noted. No parenchymal consolidation is seen. There is no effusion or pneumothorax detected. IMPRESSION: Mild congestion. No other significant abnormality detected. Dictated by: Dictated on workstation # [id number]
[2019-11-19 07:10] VITALS: BP 155/72
[2019-11-19] MEDS: POTASSIUM CL 10MEQ/50ML IVPB 50 ML IV SCH ×3 (08:11→11:15)
[2019-11-19] MEDS: PANTOPRAZOLE 40 MG (PROTONIX) VIAL IV SCH (08:13)
[2019-11-19] MEDS: FAMOTIDINE 20MG/2ML IV (PEPCID) IV SCH (08:13)
[2019-11-19] MEDS ORDERED: CEFD300C3 PO (11:31)
--- NOTE | 2019-11-19 11:31 | NUR ---
PROTOCOL 4 HOUR RECHECK OF POTASSIUM LEVEL NOT DONE PER DR LEWIS.
--- NOTE | 2019-11-19 11:32 | Discharge Inst-Skilled Nursing ---
Discharge Inst-Skilled NF Reconcile Patient Problems Problems Reviewed?: Yes Patient Instructions Patient Problems: UTI Proteus CRI Urinary retention chronic Mo cath senior living placement Consult/Follow Up/Orders Follow Up Appt.: [facility] on [facility] rounds Skilled NF Admit to: Certification (SNF) I certify that SNF services are required to be given on an inpatient basis because of the above named patient's need for penitentiary care on a continuing basis for the conditions(s) for which he/she was receiving inpatient hospital services prior to his/her transfer to the SNF. Retirement Facility Order: Nursing Services, Adding Machine Mechanic-Evaluate & Treat, Physical Therapy-Evaluate & Treat, Speech Language-Evaluate & Treat Oxygen Delivery Method: Room Air Discharge Diet: No Restrictions Resuscitation Status: Full Code New & Resume Previous Orders New Medications: Cefdinir (Cefdinir) 300 Mg Capsule 300 MG PO BID for 4 Days, CAP Continued Medications: Lactulose (Lactulose) 10 Gm/15 Ml Solution 30 ML PO BID, EA Megestrol Acetate (Megestrol Acetate) 20 Mg Tablet 20 MG PO DAILY, TAB Nicotine (Nicotine Patch) 1 Each Patch.td24 7 MG TD DAILY, PATCH Ondansetron HCl (Zofran) 4 Mg Tab 4 MG PO Q4H PRN for NAUSEA/VOMITING-1ST LINE, TAB GIVE AT LEAST 2 DOSES AND IF STILL VOMITING SEND TO ER/DR'S OFFICE TO BE EVALUATED Paroxetine HCl (Paroxetine HCl) 20 Mg Tablet 20 MG PO DAILY, TAB Potassium Chloride (Potassium Chloride) 10 Meq Tab.er.prt 10 MEQ PO BID Quetiapine Fumarate (Quetiapine Fumarate) 25 Mg Tablet 50 MG PO BID, TAB TAKES 2 (25MG) TWICE DAILY Tamsulosin HCl (Flomax) 0.4 Mg Cap 0.4 MG PO BID, CAP Priscilla Chavis Nov 19, 2019 11:32 PRISCILLA CHAVIS DO Nov 19, 2019 11:32
--- NOTE | 2019-11-19 11:33 | Discharge Summary ---
Discharge Summary Hospital Course Was the Problem List Reviewed?: Yes Hospital Course Date of Admission: Nov 16, 2019 at 08:13 Admission Diagnosis : [facility] Phys[facility] [place] Date of Discharge: 11/19/19 Discharge Diagnosis: ARF, Gross hematuria, urinary retention due to clot formation in catheter system, dementia, severe cachexia Hospital Course: Patient had a standard course after admitted for ARF and hematuria and clot formation in catheter causing acute urinary retention. I knew him from 2 week course at [facility] and he was a hospice candidate at that time and appears to have declined since that visit a few days prior to admit. Overall he responded to treatment and abx was matched to Proteus on UCx and he was dc on skilled care. Labs and Pending Lab Test: Laboratory Tests 11/19/19 05:43: White Blood Count 6.2, Red Blood Count 3.01L, Hemoglobin 9.2L, Hematocrit 28L, Mean Corpuscular Volume 93, Mean Corpuscular Hemoglobin 31, Mean Corpuscular Hemoglobin Concent 33, Red Cell Distribution Width 13.5, Platelet Count 183, Mean Platelet Volume 10.7H, Neutrophils (%) (Auto) 79H, Lymphocytes (%) (Auto) 10L, Monocytes (%) (Auto) 11, Eosinophils (%) (Auto) 1, Basophils (%) (Auto) 0, Neutrophils # (Auto) 4.9, Lymphocytes # (Auto) 0.6L, Monocytes # (Auto) 0.7, Eosinophils # (Auto) 0.1, Basophils # (Auto) 0.0, Sodium Level 143, Potassium Level 3.0L, Chloride Level 116H, Carbon Dioxide Level 19L, Anion Gap 8, Blood Urea Nitrogen 27H, Creatinine 1.07, Estimat Glomerular Filtration Rate > 60, BUN/Creatinine Ratio 25, Glucose Level 83, Calcium Level 7.9L, Phosphorus Level 2.9, Magnesium Level 1.9 Microbiology 11/16/19 MRSA Screen - Final, Complete MRSA not isolated 11/16/19 Blood Culture - Preliminary, Resulted Proteus mirabilis 11/16/19 Urine Culture - Final, Complete Proteus mirabilis Home Meds Active Cefdinir 300 Mg Capsule 300 Mg PO BID 4 Days Reported Zofran (Ondansetron HCl) 4 Mg Tab 4 Mg PO Q4H PRN GIVE AT LEAST 2 DOSES AND IF STILL VOMITING SEND TO ER/DR'S OFFICE TO BE EVALUATED Flomax (Tamsulosin HCl) 0.4 Mg Cap 0.4 Mg PO BID Quetiapine Fumarate 25 Mg Tablet 50 Mg PO BID TAKES 2 (25MG) TWICE DAILY Potassium Chloride 10 Meq Tab.er.prt 10 Meq PO BID Paroxetine HCl 20 Mg Tablet 20 Mg PO DAILY Nicotine Patch (Nicotine) 1 Each Patch.td24 7 Mg TD DAILY Megestrol Acetate 20 Mg Tablet 20 Mg PO DAILY Lactulose 10 Gm/15 Ml Solution 30 Ml PO BID Assessment/Pt Instructions [facility] NH rounds 1 week Discharge Planning: <30 minutes discharge planning Discharge Instructions Discharge Diet: No Restrictions Discharge Physical Examination Vital Signs Vital Signs Date Time Temp Pulse Resp B/P (MAP) Pulse Ox O2 Delivery O2 Flow Rate FiO2 11/19/19 08:00 97 Room Air 11/19/19 07:10 37.1 72 18 155/72 (99) General Appearance: No Apparent Distress, WD/WN, Chronically ill, Other (cachexia) Allergies: Coded Allergies: No Known Drug Allergies (Unverified , 11/16/19) Discharge Summary Date of Admission Nov 16, 2019 at 08:13 Date of Discharge Discharge Date: Nov 19, 2019 Clinical Quality Measures DVT/VTE Risk/Contraindication: Risk Factor Score Per Nursin RFS Level Per Nursing on Admit: 3=High EDNA LEWIS DO Nov 19, 2019 11:33
[2019-11-19 12:00] VITALS: BP 151/71
--- NOTE | 2019-11-19 12:03 | NUR ---
REPORT CALLED TO KATIA AT [facility]. ORDERS FAXED. SHE WILL HAVE TRANSPORTATION COME PICK HIM UP IN ABOUT 30 MINUTES
[2019-11-19 13:36] VITALS: BP 151/71
== END 2019-11-19 13:38 | DRG 698 ==
LOC: ER 05:05 → ICU 08:13 → 4TH 11-17 06:18
PROVIDERS: ADMIT Family Medicine; ATTEND Family Medicine
DX: T83.098A Other mechanical complication of other urinary catheter, initial encounter (principal); A41.9 Sepsis, unspecified organism; R65.21 Severe sepsis with septic shock; N17.9 Acute kidney failure, unspecified; E87.2 Acidosis; R64 Cachexia; F03.91 Unspecified dementia, unspecified severity, with behavioral disturbance; N39.0 Urinary tract infection, site not specified; R31.9 Hematuria, unspecified; N18.9 Chronic kidney disease, unspecified; E87.5 Hyperkalemia; D64.9 Anemia, unspecified; F17.210 Nicotine dependence, cigarettes, uncomplicated; R33.9 Retention of urine, unspecified; K59.00 Constipation, unspecified; M19.91 Primary osteoarthritis, unspecified site; G47.9 Sleep disorder, unspecified; F32.9 Major depressive disorder, single episode, unspecified
CPT/HCPCS: 36415; 71045; 80048; 80053; 81000; 82150; 82962; 83605; 83690; 83735; 84100; 85007; 85025; 85027; 85610; 85730; 86850; 86900; 86901; 86920; 87040; 87077; 87081; 87088; 87186; 93005; 93041; 96361; 96374; 96375

== ENCOUNTER 2019-12-12 05:40 | Outpatient (RCR) | payer MEDICARE, MEDICAID ==
[~2019-12-12] VITALS: Ht 177 cm; Wt 51.8 kg
[~2019-12-12 05:40] MED LIST: CEFD300C3 PO; LACT10SO PO; MEGE20TA3 PO; NICO-586 TD; ONDN4T PO; PARO20TA5 PO; POTA10TA36 PO; QUET25TA73 PO; TMSL.4C PO
[2019-12-12] MEDS ORDERED: LORA-404 PO (13:28)
[2019-12-12] MEDS ORDERED: MULT-1136 PO (13:28)
== END 2019-12-12 16:00 | disposition home or self-care (01) ==
LOC: PREOP 05:40
PROVIDERS: ATTEND Urology
DX: Z01.812 Encounter for preprocedural laboratory examination (principal); R33.9 Retention of urine, unspecified; Z20.828 Contact with and (suspected) exposure to other viral communicable diseases
CPT/HCPCS: 87635

== ENCOUNTER → 2019-12-13 | Day surgery (SDC) | payer MEDICARE, MEDICAID ==
[2019-12-13] VITALS (11 sets, daily range): BP systolic 118–169; BP diastolic 56–78
[~2019-12-13] VITALS: Ht 177 cm; Wt 50.4 kg
[~2019-12-13] MED LIST changes: +BELLADONNA ALK/OPIUM (B & O) 30 MG SUPP PR PRN; +BETHANECHOL 25 MG (URECHOLINE) TAB ONE; +BETHANECHOL 25 MG (URECHOLINE) TAB PO NR; +CATHETER FLUSH 10 ML SYR IV PRN; +GENTAMICIN 80 MG/NS 100 ML IVPB IV ONE; +HYDROcodone/APAP 10 MG/325 MG (LORTAB) TAB PO PRN; +LEVOFLOXACIN 500 MG/100 ML IV 100 ML IV ONE; +LIDOCAINE UROJET 2% GEL 10 ML PKG ONE; +LIDOCAINE UROJET 2% GEL 10 ML PKG TOP PRN; +LORA-404 PO; +MIDAZOLAM 2 MG/2 ML (VERSED) VIAL ONE; +MILK OF MAGNESIA 400 MG/5 ML 30 ML UDC PO PRN; +MULT-1136 PO; +ONDANSETRON 4 MG/2 ML (SDV) Z0FRAN IVP PRN; +cefTRIAXone 1,000 MG/SWFI 10 ML IV PUSH IV ONE; +fentaNYL INJECTION 100 MCG/2 ML AMP ONE; +proPOfol 200 MG/20 ML (DIPRIVAN) VIAL IV ONE
--- OUTSIDE RECORDS SUMMARY | 2019-12-13 06:08 | XMS REPORT | Continuity of Care Document ---
Author Organization Unknown Address Unknown Phone Unavailable Allergies Active Description Code Type Severity Reaction Onset Reported/Identified Relationship to Patient Clinical Status Yes NO KNOWN DRUG ALLERGIES UNKNOWN UNKNOWN Yes No Known Drug Allergies [id number] Drug Allergy Unknown N/A 11/16/2019 Medications Medication Packaging Start Date St op [...] gm 11/04/2019 11/14/2019 PRN Q3H Flu vacc [id number] 6mos up(P F)) IM syringe QUAD (Fluarix) [...] Chavis W 530.4 PERFORATION OF ESOPHAGUS 10/30/2019 Priscilla Chavis W 584.9 ACUTE KIDNEY FAILURE, UNSPECIFIED 10/30/2019 Priscilla Chavis W 780.97 ALTERED MENTAL STATUS 10/30/2019 Sendy Chavisi W E86.0 DEHYDRATION 10/30/2019 Priscilla Chavis W K22.3 PERFORATION OF ESOPHAGUS 10/30/2019 Priscilla Chavis W N17.9 ACUTE KIDNEY FAILURE, UNSPECIFIED 10/30/2019 Sendy Chavisi W R41.82 ALTERED MENTAL STATUS, UNSPECIFIED 11/04/2019 Sendy Chavisi W 276.51 DEHYDRATION 11/04/2019 Partha Priscilla W 530.4 PERFORATION OF ESOPHAGUS 11/04/2019 Sendy Chavisi W 584.9 ACUTE KIDNEY FAILURE, UNSPECIFIED 11/04/2019 Partha Priscilla W 780.97 ALTERED MENTAL STATUS 11/04/2019 Sendy Chavisi W E86.0 DEHYDRATION 11/04/2019 Partha Priscilla W K22.3 PERFORATION OF ESOPHAGUS 11/04/2019 Partha Priscilla W N17.9 ACUTE KIDNEY FAILURE, UNSPECIFIED 11/04/2019 Partha Priscilla W R41.82 ALTERED MENTAL STATUS, UNSPECIFIED 11/17/2019 EDWARD ELIZABETH, RON Mayen Ot A41.9 SEPSIS, UNSPECIFIED ORGANISM 11/17/2019 EDWARD ELIZABETH, RON Mayen Ot D64.9 ANEMIA, UNSPECIFIED 11/17/2019 EDWARD ELIZABETH, RON R Ot E87.2 ACIDOSIS 11/17/2019 EDWARD ELIZABETH, RON R Ot E87.5 HYPERKALEMIA 11/17/2019 EDWARD ELIZABETH, RON R Ot F03.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 DEMENTIA WITH BEHAVIORAL DIS 11/17/2019 EDWARD ELIZABETH, RON R Ot F17.2 10 NICOTINE DEPENDENCE, CIGARETTES, UNCOMPL 11/17/2019 EDWARD ELIZABETH, RON R Ot F32.9 MAJOR DEPRESSIVE DISORDER, SINGLE EPISOD 11/17/2019 EDWARD ELIZABETH, RON R Ot G47.9 SLEEP DISORDER, UNSPECIFIED 11/17/2019 EDWARD ELIZABETH, RON R Ot K59.0 0 CONSTIPATION, UNSPECIFIED 11/17/2019 EDWARD ELIZABETH, RON R Ot K92.0 HEMATEMESIS 11/17/2019 EDWARD ELIZABETH, RON R Ot M19.9 1 PRIMARY OSTEOARTHRITIS, UNSPECIFIED SITE 11/17/2019 EDWARD ELIZABETH, RON R Ot N17.9 ACUTE KIDNEY FAILURE, UNSPECIFIED 11/17/2019 EDWARD ELIZABETH, RON R Ot N18.9 CHRONIC KIDNEY DISEASE, UNSPECIFIED 11/17/2019 EDWARD ELIZABETH, RON R Ot N39.0 URINARY TRACT INFECTION, SITE NOT SPECIF 11/17/2019 EDWARD ELIZABETH, RON Mayen Ot N42.9 DISORDER OF PROSTATE, UNSPECIFIED 11/17/2019 EDWARD ELIZABETH, RON R Ot R31.9 HEMATURIA, UNSPECIFIED 11/17/2019 EDWARD ELIZABETH, RON Mayen Ot R33.9 RETENTION OF URINE, UNSPECIFIED 11/17/2019 EDWARD ELIZABETH, RON R Ot R53.8 1 OTHER MALAISE 11/17/2019 EDWARD ELIZABETH, RON R Ot R64 CACHEXIA 11/17/2019 EDWARD ELIZABETH, RON R Ot R65.2 1 SEVERE SEPSIS WITH SEPTIC SHOCK 11/17/2019 EDWARD ELIZABETH, RON Mayen Ot T83.091A [facility] COMPL OF INDWELLING URETHRAL CATHET 11/18/2019 EDWARD ELIZABETH, RON R Ot A41.9 SEPSIS, UNSPECIFIED ORGANISM 11/18/2019 EDWARD ELIZABETH, RON Mayen Ot D64.9 ANEMIA, UNSPECIFIED 11/18/2019 EDWARD ELIZABETH, ORN R Ot E87.2 ACIDOSIS 11/18/2019 EDWARD ELIZABETH, RON R Ot E87.5 HYPERKALEMIA 11/18/2019 EDWARD ELIZABETH, RON R Ot F03.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 DEMENTIA WITH BEHAVIORAL DIS 11/18/2019 EDWARD ELIZABETH, RON R Ot F17.2 10 NICOTINE DEPENDENCE, CIGARETTES, UNCOMPL 11/18/2019 EDWARD ELIZABETH, RON R Ot F32.9 MAJOR DEPRESSIVE DISORDER, SINGLE EPISOD 11/18/2019 EDWARD ELIZABETH, RON R Ot G47.9 SLEEP DISORDER, UNSPECIFIED 11/18/2019 EDWARD ELIZABETH, RON R Ot K59.0 0 CONSTIPATION, UNSPECIFIED 11/18/2019 EDWARD ELIZABETH, RON R Ot K92.0 HEMATEMESIS 11/18/2019 EDWARD ELIZABETH, RON R Ot M19.9 1 PRIMARY OSTEOARTHRITIS, UNSPECIFIED SITE 11/18/2019 EDWARD ELIZABETH, RON R Ot N17.9 ACUTE KIDNEY FAILURE, UNSPECIFIED 11/18/2019 EDWARD ELIZABETH, RON R Ot N18.9 CHRONIC KIDNEY DISEASE, UNSPECIFIED 11/18/2019 EDWARD ELIZABETH, RON R Ot N39.0 URINARY TRACT INFECTION, SITE NOT SPECIF 11/18/2019 EDWARD ELIZABETH, RON R Ot N42.9 DISORDER OF PROSTATE, UNSPECIFIED 11/18/2019 EDWARD ELIZABETH, RON R Ot R31.9 HEMATURIA, UNSPECIFIED 11/18/2019 EDWARD ELIZABETH, RON R Ot R33.9 RETENTION OF URINE, UNSPECIFIED 11/18/2019 EDWARD ELIZABETH, RON R Ot R53.8 1 OTHER MALAISE 11/18/2019 EDWARD ELIZABETH, RON R Ot R64 CACHEXIA 11/18/2019 EDWARD ELIZABETH, RON R Ot R65.2 1 SEVERE SEPSIS WITH SEPTIC SHOCK 11/18/2019 EDWARD ELIZABETH, RON R Ot T83.091A [facility] COMPL OF INDWELLING URETHRAL CATHET 11/18/2019 EDWARD ELIZABETH, RON R Ot A41.9 SEPSIS, UNSPECIFIED ORGANISM 11/18/2019 EDWARD ELIZABETH, RON R Ot D64.9 ANEMIA, UNSPECIFIED 11/18/2019 EDWARD ELIZABETH, RON R Ot E87.2 ACIDOSIS 11/18/2019 EDWARD ELIZABETH, RON R Ot E87.5 HYPERKALEMIA 11/18/2019 EDWARD ELIZABETH, RON R Ot F03.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 DEMENTIA WITH BEHAVIORAL DIS 11/18/2019 EDWARD ELIZABETH, RON Mayen Ot F17.2 10 NICOTINE DEPENDENCE, CIGARETTES, UNCOMPL 11/18/2019 EDWARD ELIZABETH, RON Mayen Ot F32.9 MAJOR DEPRESSIVE DISORDER, SINGLE EPISOD 11/18/2019 EDWARD ELIZABETH, RON Mayen Ot G47.9 SLEEP DISORDER, UNSPECIFIED 11/18/2019 EDWARD ELIZABETH, RON Mayen Ot K59.0 0 CONSTIPATION, UNSPECIFIED 11/18/2019 EDWARD ELIZABETH, RON Mayen Ot K92.0 HEMATEMESIS 11/18/2019 EDWARD ELIZABETH, RON R Ot M19.9 1 PRIMARY OSTEOARTHRITIS, UNSPECIFIED SITE 11/18/2019 EDWARD ELIZABETH, RON Mayen Ot N17.9 ACUTE KIDNEY FAILURE, UNSPECIFIED 11/18/2019 EDWARD ELIZABETH, RON Mayen Ot N18.9 CHRONIC KIDNEY DISEASE, UNSPECIFIED 11/18/2019 EDWARD ELIZABETH, RON Mayen Ot N39.0 URINARY TRACT INFECTION, SITE NOT SPECIF 11/18/2019 EDWARD ELIZABETH, RON Mayen Ot N42.9 DISORDER OF PROSTATE, UNSPECIFIED 11/18/2019 EDWARD ELIZABETH, RON Mayen Ot R31.9 HEMATURIA, UNSPECIFIED 11/18/2019 EDWARD ELIZABETH, RON Mayen Ot R33.9 RETENTION OF URINE, UNSPECIFIED 11/18/2019 EDWARD ELIZABETH, RON Mayen Ot R53.8 1 OTHER MALAISE 11/18/2019 EDWARD ELIZABETH, RON Mayen Ot R64 CACHEXIA 11/18/2019 EDWARD ELIZABETH, RON Mayen Ot R65.2 1 SEVERE SEPSIS WITH SEPTIC SHOCK 11/18/2019 RON LEON MD Ot T83.091A [facility] COMPL OF INDWELLING URETHRAL CATHET 11/18/2019 EDWARD ELIZABETH, RON Mayen Ot T83.511A I/I REACT D/T INDWELLING URETHRAL CATHET 11/18/2019 DEWARD ELIZABETH, RON Mayen Ot A41.9 SEPSIS, UNSPECIFIED ORGANISM 11/18/2019 EDWARD ELIZABETH, RON Mayen Ot D64.9 ANEMIA, UNSPECIFIED 11/18/2019 EDWARD ELIZABETH, RON Mayen Ot E87.2 ACIDOSIS 11/18/2019 EDWARD ELIZABETH, RON Mayen Ot E87.5 HYPERKALEMIA 11/18/2019 EDWARD ELIZABETH, RON Mayen Ot F03.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 DEMENTIA WITH BEHAVIORAL DIS 11/18/2019 EDWARD ELIZABETH, RON Mayen Ot F17.2 10 NICOTINE DEPENDENCE, CIGARETTES, UNCOMPL 11/18/2019 EDWARD ELIZABETH, RON Mayen Ot F32.9 MAJOR DEPRESSIVE DISORDER, SINGLE EPISOD 11/18/2019 EDWRAD ELIZABETH, RON Mayen Ot G47.9 SLEEP DISORDER, UNSPECIFIED 11/18/2019 EDWARD ELIZABETH, RON Mayen Ot K59.0 0 CONSTIPATION, UNSPECIFIED 11/18/2019 EDWARD ELIZABETH, RON Mayen Ot K92.0 HEMATEMESIS 11/18/2019 EDWARD ELIZABETH, RON Mayen Ot M19.9 1 PRIMARY OSTEOARTHRITIS, UNSPECIFIED SITE 11/18/2019 EDWARD ELIZABETH, RON Mayen Ot N17.9 ACUTE KIDNEY FAILURE, UNSPECIFIED 11/18/2019 EDWARD ELIZABETH, RON Mayen Ot N18.9 CHRONIC KIDNEY DISEASE, UNSPECIFIED 11/18/2019 EDWARD ELIZABETH, RON Mayen Ot N39.0 URINARY TRACT INFECTION, SITE NOT SPECIF 11/18/2019 EDWARD ELIZABETH, RON Mayen Ot N42.9 DISORDER OF PROSTATE, UNSPECIFIED 11/18/2019 EDWARD ELIZABETH, RON Mayen Ot R31.9 HEMATURIA, UNSPECIFIED 11/18/2019 EDWARD ELIZABETH, RON Mayen Ot R33.9 RETENTION OF URINE, UNSPECIFIED 11/18/2019 EDWARD ELIZABETH, RON Mayen Ot R53.8 1 OTHER MALAISE 11/18/2019 EDWARD ELIZABETH, RON Mayen Ot R64 CACHEXIA 11/18/2019 EDWARD ELIZABETH, RON Mayen Ot R65.2 1 SEVERE SEPSIS WITH SEPTIC SHOCK 11/18/2019 RON LEON MD Ot T83.091A [facility] COMPL OF INDWELLING URETHRAL CATHET 11/18/2019 RON LEON MD Ot T83.511A I/I REACT D/T INDWELLING URETHRAL CATHET 11/19/2019 RON LEON MD Ot A41.9 SEPSIS, UNSPECIFIED ORGANISM 11/19/2019 RON LEON MD Ot D64.9 ANEMIA, UNSPECIFIED 11/19/2019 EDWARD ELIZABETH, RON Mayen Ot E87.2 ACIDOSIS 11/19/2019 RON LEON MD Ot E87.5 HYPERKALEMIA 11/19/2019 RON LEON MD Ot F03.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 DEMENTIA WITH BEHAVIORAL DIS 11/19/2019 EDWARD ELIZABETH, RON Mayen Ot F17.2 10 NICOTINE DEPENDENCE, CIGARETTES, UNCOMPL 11/19/2019 EDWARD ELIZABETH, RON R Ot F32.9 MAJOR DEPRESSIVE DISORDER, SINGLE EPISOD 11/19/2019 EDWARD ELIZABETH, RON Mayen Ot G47.9 SLEEP DISORDER, UNSPECIFIED 11/19/2019 EDWARD ELIZABETH, RON Mayen Ot K59.0 0 CONSTIPATION, UNSPECIFIED 11/19/2019 EDWARD ELIZABETH, RON Mayen Ot K92.0 HEMATEMESIS 11/19/2019 EDWARD ELIZABETH, RON Mayen Ot M19.9 1 PRIMARY OSTEOARTHRITIS, UNSPECIFIED SITE 11/19/2019 EDWARD ELIZABETH, RON Mayen Ot N17.9 ACUTE KIDNEY FAILURE, UNSPECIFIED 11/19/2019 EDWARD ELIZABETH, RON Mayen Ot N18.9 CHRONIC KIDNEY DISEASE, UNSPECIFIED 11/19/2019 EDWARD ELIZABETH, RON Mayen Ot N39.0 URINARY TRACT INFECTION, SITE NOT SPECIF 11/19/2019 EDWARD ELIZABETH, RON Mayen Ot N42.9 DISORDER OF PROSTATE, UNSPECIFIED 11/19/2019 EDWARD ELIZABETH, RON Mayen Ot R31.9 HEMATURIA, UNSPECIFIED 11/19/2019 EDWARD ELIZABETH, RON Mayen Ot R33.9 RETENTION OF URINE, UNSPECIFIED 11/19/2019 EDWARD ELIZABETH, RON Mayen Ot R53.8 1 OTHER MALAISE 11/19/2019 EDWARD ELIZABETH, RON Mayen Ot R64 CACHEXIA 11/19/2019 RON LEON MD Ot R65.2 1 SEVERE SEPSIS WITH SEPTIC SHOCK 11/19/2019 RON LEON MD Ot T83.091A [facility] COMPL OF INDWELLING URETHRAL CATHET 11/19/2019 RON LEON MD Ot T83.511A I/I REACT D/T INDWELLING URETHRAL CATHET 11/19/2019 RON LEON MD Ot A41.9 SEPSIS, UNSPECIFIED ORGANISM 11/19/2019 RON LEON MD Ot D64.9 ANEMIA, UNSPECIFIED 11/19/2019 RON LEON MD Ot E87.2 ACIDOSIS 11/19/2019 RON LEON MD Ot E87.5 HYPERKALEMIA 11/19/2019 RON LEON MD Ot F03.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 DEMENTIA WITH BEHAVIORAL DIS 11/19/2019 RON LEON MD Ot F17.2 10 NICOTINE DEPENDENCE, CIGARETTES, UNCOMPL 11/19/2019 RON LEON MD Ot F32.9 MAJOR DEPRESSIVE DISORDER, SINGLE EPISOD 11/19/2019 RON LEON MD Ot G47.9 SLEEP DISORDER, UNSPECIFIED 11/19/2019 RON LEON MD Ot K59.0 0 CONSTIPATION, UNSPECIFIED 11/19/2019 RON LEON MD Ot K92.0 HEMATEMESIS 11/19/2019 RON LEON MD Ot M19.9 1 PRIMARY OSTEOARTHRITIS, UNSPECIFIED SITE 11/19/2019 RON LEON MD Ot N17.9 ACUTE KIDNEY FAILURE, UNSPECIFIED 11/19/2019 RON LEON MD Ot N18.9 CHRONIC KIDNEY DISEASE, UNSPECIFIED 11/19/2019 RON LEON MD Ot N39.0 URINARY TRACT INFECTION, SITE NOT SPECIF 11/19/2019 RON LEON MD Ot N42.9 DISORDER OF PROSTATE, UNSPECIFIED 11/19/2019 RON LEON MD Ot R31.9 HEMATURIA, UNSPECIFIED 11/19/2019 RON LEON MD Ot R33.9 RETENTION OF URINE, UNSPECIFIED 11/19/2019 RON LEON MD Ot R53.8 1 OTHER MALAISE 11/19/2019 RON LEON MD Ot R64 CACHEXIA 11/19/2019 RON LEON MD Ot R65.2 1 SEVERE SEPSIS WITH SEPTIC SHOCK 11/19/2019 RON LEON MD Ot T83.091A [facility] COMPL OF INDWELLING URETHRAL CATHET 11/19/2019 RON LEON MD, Ot T83.098A [facility] COMPL OF OTHER URINARY CATHETER, IN 11/19/2019 RON LEON MD, Ot T83.511A I/I REACT D/T INDWELLING URETHRAL CATHET Procedures There is no data. Results Test Result Range Blood Culture - 10/30/19 15:39 PRELIM CULTURE RESULTS Blood Culture Negativ e, No Growth Day 1 FINAL CULTURE RESULTS Blood Culture Negative , No Growth Day 5 MEDIA PLATED Setup at 17:15 on 10/30/2019X [id number] Culture Media Position C48 CULTURE SOURCE BLOOD [...] Negative Urine-Blood 1+ Negative Urine-Color Yellow Colorless-Lt. [place] ow Urine-Epithelial Cells 5-10/HPF Urine-Glucose Negative Negative Urine-Ketones Trace Negative Urine-Leukocytes 1+ Negative Urine-Nitrite Negative Negative Urine-Other Urine Saved if Culture Need ed (48hrs from time of collection) Urine-pH 5.5 5-8.5 Urine-Protein Negative Negative Urine-RBC 0-2/HPF Urine-Specific [place] 1.020 1.000-1 .030 Urine-WBC 5-10/HPF Urobilinogen 0.2 [...] LEUKO REDUCED AS1 T RANSFUSED 11/16/19 0614 [facility] Blood type T Indirect antibody screen pa ramy - 11/16/19 05:15 WRISTBAND NUMBER [id number] NR ABO+Rh group AP NR Blood group antibody screen NEGATIVE NR PT panel in platelet poor plasma by [...] urinalysis with reflex to culture YES NRG Bacterial urine culture - 11/16/19 05:55 Bacterial urine culture [id number] NRG COLONY COUNT >100,000/ML NRG SUSCEPTIBILITY SUSCEPTIBILTIY REPORTED 11/16 13:05 NRG Dirithromycin susceptibility test by dis k diffusion - 11/16/19 05:55 Gentamicin susceptibility test by minimum inhibitory c oncentration <= NRG Trimethoprim/sulfamethoxazole susceptibi lity test by minimum inhibitoryconcentration <= NRG Levofloxacin susceptibility test by minimum inhibitory concentration <= NRG Ampicillin susceptibility test by minimum inhibitory c oncentration <= NRG Cefazolin susceptibility test by minimum inhibitory co ncentration 16 NRG Ceftriaxone susceptibility test by minimum inhibitory concentration <= NRG Ciprofloxacin susceptibility test by minimum inhibitor y concentration <= NRG Nitrofurantoin susceptibility test by mi nimum inhibitory concentration > NRG Amoxicillin and clavulanate potassium susc DENG <= NRG Blood lactic acid measurement (moles/vol ume) - 11/16/19 06:06 Blood lactic acid measurement (moles/volume) 11.28 mmol/L 0.50-2.00 Bacterial blood culture - 11/16/19 06:06 QUANTITY OF GROWTH Isolated NRG Bacterial blood culture [id number] NRG SUSCEPTIBILITY REFER TO OTHER BLOOD CULTURE WITH S MARIA ELENA NRG MRSA SCREEN ORGANISM FOR SENSITIVITY; M9229. NRG Bacterial blood culture - 11/16/19 06:13 QUANTITY OF GROWTH Isolated NRG Bacterial blood culture [id number] NRG SUSCEPTIBILITY SUSCEPTIBILITY REPORTED 11-18-19 37 NRG [facility] - 11/16/19 06:1 3 Gentamicin susceptibility test by minimum inhibitory c oncentration <= NRG Trimethoprim/sulfamethoxazole susceptibi lity test by minimum inhibitoryconcentration S NRG Levofloxacin susceptibility test by minimum inhibitory concentration <= NRG Ampicillin susceptibility test by minimum inhibitory c oncentration <= NRG Cefazolin susceptibility test by minimum inhibitory co ncentration 16 NRG Ceftriaxone susceptibility test by minimum inhibitory concentration <= NRG Piperacillin/tazobactam susceptibility t est by minimum inhibitory concentration <= NRG Ciprofloxacin susceptibility test by minimum inhibitor y concentration <= NRG Amoxicillin and clavulanate potassium susc DENG <= NRG Serum or plasma lactate measurement (mol es/volume) - 11/16/19 08:05 Serum or plasma lactate measurement (moles/volume) 7.55 mmol/L 0.50-2.00 Methicillin resistant Staphylococcus aur eus (MRSA) screening culture - 11/16/19 09:30 Methicillin resistant Staphylococcus aureus (MRSA) scr eening culture NEG NRG Serum or plasma lactate measurement (mol es/volume) - 11/16/19 10:00 Serum or plasma lactate measurement (moles/volume) 5.34 mmol/L 0.50-2.00 Complete blood count (CBC) with automate d white blood cell (WBC) differential - 11/16/19 12:58 Blood leukocytes automated count (number/volume) 14.9 10*3/uL 4.3-11.0 Blood erythrocytes automated count (number/volume) 3.14 10*6/uL 4.35-5.85 Venous blood hemoglobin measurement (mass/volume) 9.5 g/dL 13.3-17.7 Blood hematocrit (volume fraction) 29 % 40-54 Automated erythrocyte mean corpuscular volume 91 [ foz_us] 80-99 Automated erythrocyte mean corpuscular h emoglobin (mass per erythrocyte) 30 pg 25-34 Automated erythrocyte mean corpuscular h emoglobin concentration measurement (mass/volume) 33 g/dL 32-36 Automated erythrocyte distribution width ratio 14. 3 % 10.0- 14.5 Automated blood platelet count (count/volume) 220 10*3/uL 130-400 Automated blood platelet mean volume measurement 9.6 [foz_us] 7.4-10.4 Automated blood neutrophils/100 leukocytes 92 % 42-75 Automated blood lymphocytes/100 leukocytes 3 % 12-44 Blood monocytes/100 leukocytes 5 % 0-12 Automated blood eosinophils/100 leukocytes 0 % 0-10 Automated blood basophils/100 leukocytes 0 % 0-10 Blood neutrophils automated count (number/volume) 13.7 10*3 1.8-7.8 Blood lymphocytes automated count (number/volume) 0.4 10*3 1.0-4.0 Blood monocytes automated count (number/volume) 0. 8 10*3 0.0-1.0 Automated eosinophil count 0.0 10*3/uL 0 .0-0.3 Automated blood basophil count (count/volume) 0.0 10*3/uL 0.0-0.1 Comprehensive metabolic panel - 11/16/19 12:58 Serum or plasma sodium measurement (moles/volume) 140 mmol/L 135-145 Serum or plasma potassium measurement (moles/volume) 5.0 mmol/L 3.6-5.0 Serum or plasma chloride measurement (moles/volume) 112 mmol/L 98-107 Carbon dioxide 16 mmol/L 21-32 Serum or plasma anion gap determination (moles/volume) 12 mmol/L 5-14 Serum or plasma urea nitrogen measurement (mass/volume ) 53 mg/dL 7-18 Serum or plasma creatinine measurement (mass/volume) 2.28 mg/dL 0.60-1.30 Serum or plasma urea nitrogen/creatinine mass ratio 23 NRG Serum or plasma creatinine measurement w ith calculation of estimated glomerular filtration rate 28 NRG Serum or plasma glucose measurement (mass/volume) 115 mg/dL 70-105 Serum or plasma calcium measurement (mass/volume) 8.0 mg/dL 8.5-10.1 Serum or plasma total bilirubin measurement (mass/volu me) 0.7 mg/dL 0.1-1.0 Serum or plasma alkaline phosphatase tere surement (enzymatic activity/volume) 56 U/L 40-136 Serum or plasma aspartate aminotransfera se measurement (enzymatic activity/volume) 20 U/L 5-34 Serum or plasma alanine aminotransferase measurement (enzymatic activity/volume) 42 U/L 0-55 Serum or plasma protein measurement (mass/volume) 5.0 g/dL 6.4-8.2 Serum or plasma albumin measurement (mass/volume) 2.6 g/dL 3.2-4.5 CALCIUM CORRECTED 9.1 mg/dL 8.5-10.1 Serum or plasma phosphate measurement (m ass/volume) - 11/16/19 12:58 Serum or plasma phosphate measurement (mass/volume) 4.5 mg/dL 2.3-4.7 Magnesium - 11/16/19 12:58 Magnesium 1.6 mg/dL 1.6-2.4 Serum or plasma lactate measurement (mol es/volume) - 11/16/19 12:58 Serum or plasma lactate measurement (moles/volume) 3.94 mmol/L 0.50-2.00 Manual absolute plasma cell count - 11/06 12:58 Blood monocytes/100 leukocytes 2 % NRG Manual blood segmented neutrophils/100 leukocytes 68 % NRG Blood band neutrophils/100 leukocytes 27 % NRG Manual blood lymphocytes/100 leukocytes 2 % NRG Manual eosinophils/100 leukocytes in nose 0 % NRG Manual blood basophils/100 leukocytes 0 % NRG Blood ovalocytes detection by light microscopy [facility] NRG Manual blood myelocytes/100 leukocytes 1 % NRG Serum or plasma lactate measurement (mol es/volume) - 11/16/19 15:10 Serum or plasma lactate measurement (moles/volume) 2.11 mmol/L 0.50-2.00 Serum or plasma lactate measurement (mol es/volume) - 11/16/19 17:10 Serum or plasma lactate measurement (moles/volume) 2.28 mmol/L 0.50-2.00 Capillary blood glucose measurement by g lucometer (mass/volume) - 11/16/19 19:51 Capillary blood glucose measurement by glucometer (mas s/volume) 118 mg/dL 70-110 Complete blood count (CBC) with automate d white blood cell (WBC) differential - 11/17/19 02:50 Blood leukocytes automated count (number/volume) 12.3 10*3/uL 4.3-11.0 Blood erythrocytes automated count (number/volume) 2.77 10*6/uL 4.35-5.85 Venous blood hemoglobin measurement (mass/volume) 8.5 g/dL 13.3-17.7 Blood hematocrit (volume fraction) 25 % 40-54 Automated erythrocyte mean corpuscular volume 91 [ foz_us] 80-99 Automated erythrocyte mean corpuscular h emoglobin (mass per erythrocyte) 31 pg 25-34 Automated erythrocyte mean corpuscular h emoglobin concentration measurement (mass/volume) 34 g/dL 32-36 Automated erythrocyte distribution width ratio 14. 3 % 10.0- 14.5 Automated blood platelet count (count/volume) 198 10*3/uL 130-400 Automated blood platelet mean volume measurement 9.8 [foz_us] 7.4-10.4 Automated blood neutrophils/100 leukocytes 92 % 42-75 Automated blood lymphocytes/100 leukocytes 4 % 12-44 Blood monocytes/100 leukocytes 4 % 0-12 Automated blood eosinophils/100 leukocytes 0 % 0-10 Automated blood basophils/100 leukocytes 0 % 0-10 Blood neutrophils automated count (number/volume) 11.4 10*3 1.8-7.8 Blood lymphocytes automated count (number/volume) 0.4 10*3 1.0-4.0 Blood monocytes automated count (number/volume) 0. 5 10*3 0.0-1.0 Automated eosinophil count 0.0 10*3/uL 0 .0-0.3 Automated blood basophil count (count/volume) 0.0 10*3/uL 0.0-0.1 Whole blood basic metabolic panel - 11/06 06/27 02:50 Serum or plasma sodium measurement (moles/volume) 141 mmol/L 135-145 Serum or plasma potassium measurement (moles/volume) 4.5 mmol/L 3.6-5.0 Serum or plasma chloride measurement (moles/volume) 115 mmol/L 98-107 Carbon dioxide 18 mmol/L 21-32 Serum or plasma anion gap determination (moles/volume) 8 mmol/L 5-14 Serum or plasma urea nitrogen measurement (mass/volume ) 46 mg/dL 7-18 Serum or plasma creatinine measurement (mass/volume) 1.59 mg/dL 0.60-1.30 Serum or plasma urea nitrogen/creatinine mass ratio 29 NRG Serum or plasma creatinine measurement w ith calculation of estimated glomerular filtration rate 43 NRG Serum or plasma glucose measurement (mass/volume) 99 mg/dL 70-105 Serum or plasma calcium measurement (mass/volume) 7.9 mg/dL 8.5-10.1 Serum or plasma phosphate measurement (m ass/volume) - 11/17/19 02:50 Serum or plasma phosphate measurement (mass/volume) 4.8 mg/dL 2.3-4.7 Magnesium - 11/17/19 02:50 Magnesium 1.8 mg/dL 1.6-2.4 Blood lactic acid measurement (moles/vol ume) - 11/17/19 02:50 Blood lactic acid measurement (moles/volume) 0.73 mmol/L 0.50-2.00 Complete blood count (CBC) with automate d white blood cell (WBC) differential - 11/18/19 06:33 Blood leukocytes automated count (number/volume) 10.0 10*3/uL 4.3-11.0 Blood erythrocytes automated count (number/volume) 2.89 10*6/uL 4.35-5.85 Venous blood hemoglobin measurement (mass/volume) 8.8 g/dL 13.3-17.7 Blood hematocrit (volume fraction) 27 % 40-54 Automated erythrocyte mean corpuscular volume 93 [ foz_us] 80-99 Automated erythrocyte mean corpuscular h emoglobin (mass per erythrocyte) 30 pg 25-34 Automated erythrocyte mean corpuscular h emoglobin concentration measurement (mass/volume) 33 g/dL 32-36 Automated erythrocyte distribution width ratio 14. 3 % 10.0- 14.5 Automated blood platelet count (count/volume) 175 10*3/uL 130-400 Automated blood platelet mean volume measurement 10.6 [foz_us] 7.4-10.4 Automated blood neutrophils/100 leukocytes 88 % 42-75 Automated blood lymphocytes/100 leukocytes 6 % 12-44 Blood monocytes/100 leukocytes 6 % 0-12 Automated blood eosinophils/100 leukocytes 0 % 0-10 Automated blood basophils/100 leukocytes 0 % 0-10 Blood neutrophils automated count (number/volume) 8.8 10*3 1.8-7.8 Blood lymphocytes automated count (number/volume) 0.6 10*3 1.0-4.0 Blood monocytes automated count (number/volume) 0. 6 10*3 0.0-1.0 Automated eosinophil count 0.0 10*3/uL 0 .0-0.3 Automated blood basophil count (count/volume) 0.0 10*3/uL 0.0-0.1 Whole blood basic metabolic panel - 11/06 07/28 06:33 Serum or plasma sodium measurement (moles/volume) 140 mmol/L 135-145 Serum or plasma potassium measurement (moles/volume) 3.7 mmol/L 3.6-5.0 Serum or plasma chloride measurement (moles/volume) 115 mmol/L 98-107 Carbon dioxide 16 mmol/L 21-32 Serum or plasma anion gap determination (moles/volume) 9 mmol/L 5-14 Serum or plasma urea nitrogen measurement (mass/volume ) 35 mg/dL 7-18 Serum or plasma creatinine measurement (mass/volume) 1.17 mg/dL 0.60-1.30 Serum or plasma urea nitrogen/creatinine mass ratio 30 NRG Serum or plasma creatinine measurement w ith calculation of estimated glomerular filtration rate > NRG Serum or plasma glucose measurement (mass/volume) 105 mg/dL 70-105 Serum or plasma calcium measurement (mass/volume) 7.9 mg/dL 8.5-10.1 Serum or plasma phosphate measurement (m ass/volume) - 11/18/19 06:33 Serum or plasma phosphate measurement (mass/volume) 2.8 mg/dL 2.3-4.7 Magnesium - 11/18/19 06:33 Magnesium 1.9 mg/dL 1.6-2.4 Complete blood count (CBC) with automate d white blood cell (WBC) differential - 11/19/19 05:43 Blood leukocytes automated count (number/volume) 6.2 10*3/uL 4.3-11.0 Blood erythrocytes automated count (number/volume) 3.01 10*6/uL 4.35-5.85 Venous blood hemoglobin measurement (mass/volume) 9.2 g/dL 13.3-17.7 Blood hematocrit (volume fraction) 28 % 40-54 Automated erythrocyte mean corpuscular volume 93 [ foz_us] 80-99 Automated erythrocyte mean corpuscular h emoglobin (mass per erythrocyte) 31 pg 25-34 Automated erythrocyte mean corpuscular h emoglobin concentration measurement (mass/volume) 33 g/dL 32-36 Automated erythrocyte distribution width ratio 13. 5 % 10.0- 14.5 Automated blood platelet count (count/volume) 183 10*3/uL 130-400 Automated blood platelet mean volume measurement 10.7 [foz_us] 7.4-10.4 Automated blood neutrophils/100 leukocytes 79 % 42-75 Automated blood lymphocytes/100 leukocytes 10 % 12-44 Blood monocytes/100 leukocytes 11 % 0-12 Automated blood eosinophils/100 leukocytes 1 % 0-10 Automated blood basophils/100 leukocytes 0 % 0-10 Blood neutrophils automated count (number/volume) 4.9 10*3 1.8-7.8 Blood lymphocytes automated count (number/volume) 0.6 10*3 1.0-4.0 Blood monocytes automated count (number/volume) 0. 7 10*3 0.0-1.0 Automated eosinophil count 0.1 10*3/uL 0 .0-0.3 Automated blood basophil count (count/volume) 0.0 10*3/uL 0.0-0.1 Whole blood basic metabolic panel - 11/06 08/25 05:43 Serum or plasma sodium measurement (moles/volume) 143 mmol/L 135-145 Serum or plasma potassium measurement (moles/volume) 3.0 mmol/L 3.6-5.0 Serum or plasma chloride measurement (moles/volume) 116 mmol/L 98-107 Carbon dioxide 19 mmol/L 21-32 Serum or plasma anion gap determination (moles/volume) 8 mmol/L 5-14 Serum or plasma urea nitrogen measurement (mass/volume ) 27 mg/dL 7-18 Serum or plasma creatinine measurement (mass/volume) 1.07 mg/dL 0.60-1.30 Serum or plasma urea nitrogen/creatinine mass ratio 25 NRG Serum or plasma creatinine measurement w ith calculation of estimated glomerular filtration rate > NRG Serum or plasma glucose measurement (mass/volume) 83 mg/dL 70-105 Serum or plasma calcium measurement (mass/volume) 7.9 mg/dL 8.5-10.1 Serum or plasma phosphate measurement (m ass/volume) - 11/19/19 05:43 Serum or plasma phosphate measurement (mass/volume) 2.9 mg/dL 2.3-4.7 Magnesium - 11/19/19 05:43 Magnesium 1.9 mg/dL 1.6-2.4 Coronavirus SARS-CoV-2 SO 2018 - 0 08:12 Coronavirus Ab [Units/volume] in Serum Negative Negative Encounters ACCT No. Visit Date/Time Discharge Status Pt. Type Provider Facility Loc./Unit Complaint [id number] 07/19/2018 11:04:42 07/19/2018 23:59: 59 CLS Outpatient [facility] [id number] 01/15/2016 11:22:48 01/15/2016 23:59: 59 CLS Outpatient [facility] [id number] 03/15/2015 09:31:08 03/15/2015 23:59: 59 CLS Outpatient [facility] [id number] 09/12/2014 09:53:01 09/12/2014 23:59: 59 CLS Outpatient [facility] [id number] 07/11/2013 15:17:45 07/11/2013 23:59: 59 CLS Outpatient [facility] [id number] 11/16/2019 08:13:00 020 13:38:00 DIS Inpatient RON LEON MD [facility] 4TH SEPTIC SHOCK,UTI [id number] 12/13/2019 08:00:00 P EN Preadmit PHU HUGHES MD [facility] SDC URINE RETENTION [id number] 12/12/2019 05:40:[address] Outpatient PHU HUGHES MD [facility] PREOP URINE RETENTION [id number] 11/04/2019 13:00:00 11/14/2019 09:10 :00 DIS Inpatient DEBI LE [facility] EPIFANIO [id number] 10/30/2019 14:40:00 11/04/2019 12:55 :00 [facility] [id number] 10/30/2019 15:01:38 Document Registration
[2019-12-13] MEDS: LACTATED RINGERS 1,000 ML IV PRN ×2 (06:24→08:32)
--- NOTE | 2019-12-13 07:08 | Progress Note-Pre Operative ---
Pre-Operative Progress Note H&P Reviewed The H&P was reviewed, patient examined and no changes noted. Date Seen by Provider: Dec 13, 2019 Time Seen by Provider: 07:08 Date H&P Reviewed: Dec 13, 2019 Time H&P Reviewed: 07:08 Pre-Operative Diagnosis: URINE RETENTION PHU HUGHES MD Dec 13, 2019 07:08
--- NOTE | 2019-12-13 07:09 | Progress Note-Post Operative ---
Post-Operative Progess Note Surgeon (s)/Healthcare Administrative Assistant (s) Surgeon PHU HUGHES MD Healthcare Administrative Assistant: NONE Pre-Operative Diagnosis URINE RETENTION Post-Operative Diagnosis SAME Procedure & Operative Findings Date of Procedure 12/13/19 Procedure Performed/Findings TURP Anesthesia Type SPINAL Estimated Blood Loss Estimated blood loss (mL): LESS THAN 100CC Specimens/Packing Specimens Removed PROSTATE CHIPS Packing: NONE PHU HUGHES MD Dec 13, 2019 07:09
[2019-12-13 07:40] LABS: HEMOGLOBIN 9.1 G/DL (13.3-17.7); MEAN PLATELET VOLUME 9.2 FL (7.4-10.4); RED CELL DISTRIBUTION WIDTH 13.5 % (10.0-14.5); WHITE BLOOD COUNT 7.6 10^3/uL (4.3-11.0)
[2019-12-13 08:03] LABS: BUN/CREATININE RATIO 17; CALCIUM 9.2 MG/DL (8.5-10.1); CARBON DIOXIDE 24 MMOL/L (21-32); CHLORIDE 106 MMOL/L (98-107); CREATININE SERUM 1.03 MG/DL (0.60-1.30); GFR ESTIMATED > 60; GLUCOSE 78 MG/DL (70-105); POTASSIUM 4.1 MMOL/L (3.6-5.0); SODIUM 141 MMOL/L (135-145)
--- NOTE | 2019-12-13 10:10 | NUR ---
Report received from Modesta SANCHEZ at bedside.
[2019-12-13] MEDS: DOCUSATE SODIUM 100 MG (COLACE) CAP PO SCH ×3 (11:15→20:56)
[2019-12-13] MEDS: LACTATED RINGERS 1,000 ML IV SCH ×3 (11:27→15:52)
--- NOTE | 2019-12-13 13:42 | OPERATIVE REPORT ---
DATE OF SERVICE: 12/13/2019 PREOPERATIVE DIAGNOSIS: Urinary retention. POSTOPERATIVE DIAGNOSIS: Urinary retention. OPERATION PERFORMED: Transurethral resection of the prostate. SURGEON: Phu Hughes MD ANESTHESIA: Spinal. COMPLICATIONS: None. DESCRIPTION OF PROCEDURE: Under satisfactory spinal anesthesia, the patient in lithotomy position, genitalia were prepped and draped in the usual sterile fashion. Urethra was dilated with Emily sound to accommodate a 27-Latvian Laboy resectoscope. Resection was started circumferentially around the bladder neck, which was opened and then the lateral lobes were resected from 1 to 6 o'clock position on both sides and then the floor and apical tissues were resected. Bleeders were cauterized as the resection was proceeding. Capsule was visualized in many points. Prostatic chips were then evacuated, and cystoscopy confirmed intact ureteric orifices, veru and sphincter with good reflex. The resection was very adequate and hemostasis satisfactory. The resectoscope was then removed and a 22-Latvian 3-way 30 mL balloon catheter was inserted in the bladder, the balloon inflated to 40 mL and put on light traction and connected to CBI, the return of which was clear. Estimated blood loss was less than 100 mL, none of which was replaced. The patient tolerated the procedure and anesthesia well and was sent to recovery room in stable condition. Job ID: [id number] DocumentID: [id number] Dictated Date: 12/13/2019 09:11:55 Electrode Cleaner Date: 12/13/2019 13:42:12 Dictated By: PHU HUGHES MD
--- NOTE | 2019-12-13 14:50 | NUR ---
CALL LIGHT IN REACH, BED CHECK ON, PT DENIES NEEDS AT THIS TIME, TOLERATING CBI WITHOUT DIFFICULTY, WILL CONTINUE TO MONITOR.
--- NOTE | 2019-12-13 15:55 | NUR ---
PPT TOLERATING CLEARS WELL, NO NAUSEA OR VOMITTING OBSERVED. WILL ADVANC DIET ORDERED.
[2019-12-14] VITALS: BP 130/69
[2019-12-14] MEDS: LACTATED RINGERS 1,000 ML IV SCH (03:20)
[2019-12-14 04:00] VITALS: BP 109/63
--- NOTE | 2019-12-14 08:01 | Progress Note - Urology ---
Progress Note-Urology Progress Notes/Assess & Plan Progress/Assessment & Plan DOING VERY WELL. URINE CLEAR REYNA. AFEBRILE Final Diagnosis URINE RETENTION PHU HUGHES MD Dec 14, 2019 08:01
[2019-12-14 08:05] VITALS: BP 107/57
--- NOTE | 2019-12-14 08:07 | Anesthesia-Regional Post-Op ---
Regional Patient Condition Mental Status: Alert, Oriented x3 Circulation: Same as Pre-Op Headache: Absent Sensation: Full Recovery Motor Block: Absent Post Op Complications Complications None Follow Up Care/Instructions Patient Instructions None needed. Anesthesia/Patient Condition Patient is doing well, no complaints, stable vital signs, no apparent adverse anesthesia problems. No complications reported per nursing. JAMEE TERRELL CRNA Dec 14, 2019 08:07
--- NOTE | 2019-12-14 08:15 | NUR ---
Joseph, CBI, and IV fluids DCd at this time per MD. 40ml emptied from balloon and 1800 emptied from Joseph. patient tolerated procedure fair, yelled at this RN and pulled joseph out himself
[2019-12-14] MEDS: DOCUSATE SODIUM 100 MG (COLACE) CAP PO SCH ×2 (09:28→20:48)
[2019-12-14 11:07] VITALS: BP 112/60
--- NOTE | 2019-12-14 13:00 | NUR ---
called williams to update on patient status. patient still not able to void at this time. said to encourage PO fluids and reassess
--- NOTE | 2019-12-14 13:14 | NUR ---
"RD ASSESSMENT PMHx: dementia; CKD PT INTERACTION: Note pt has dementia and is A&Ox1, per Nia SANCHEZ. All information is per chart review. Note PO intake of 25% x1meal. Note no BM has been recorded and pt currently on bowel regimen of colace BID. Note recent 15# wt loss x1mon. Note pt has BMI of 16.5, which given pt's age, is classified as Underweight. ABNORMAL NUTRITION-RELATED LAB VALUES Labs WNL at this time Est. kcal needs: 1550 kcal | 30 kcal/kg Est. Pro needs: 62 g Pro | 1.2 g Pro/kg PES STATEMENT: Inadequate oral intake (NI-2.1) related to loss of appetite | dementia as evidenced by chart review | PO intake 25% x1meal INTERVENTION: Continue with current diet order of DYS2 Mechanically Altered diet. Add Ensure Enlive (vary) to meals TID, for increased kcal intake. Provides 350 kcal and 13 g Pro per serving. Will continue to follow and reassess as pt needs, intake, and status change. MONITOR/EVALUATE: PO Intake; Plan of Care; Hydration Status; Weight Status; Lab Values Wai Cowart, MS, RD, LD"
[2019-12-14 15:33] VITALS: BP 119/68
--- NOTE | 2019-12-14 15:50 | NUR ---
Dr Jang notified that patient is still unable to void. patient encouraged to pee but stated he does not feel the urge to at this time. bladder scan showed 560 in bladder. williams stated patient will stay today and reevaluate DC for tomorrow, continue to bladder scan PRN, and if patient does not void in the next couple hours may straight cath for urine greater than 500ml
--- NOTE | 2019-12-14 16:04 | NUR ---
Pastoral care visit.
--- NOTE | 2019-12-14 17:44 | NUR ---
straight cath tried X2 RNs unsuccessful at this time. edging supervisor notified will try
--- NOTE | 2019-12-14 19:25 | NUR ---
Suhail here at this time to insert 3way joseph and restart CBI. orders for urecholine 25mg now and 25 ACHS starting tonight. instructed to run CBI until urine is clear and reevaluate DCing Joseph in AM
[2019-12-14 19:31] VITALS: BP 150/75
[2019-12-14] MEDS: BETHANECHOL 25 MG (URECHOLINE) TAB PO SCH (20:48)
[2019-12-15] VITALS (7 sets, daily range): BP systolic 101–146; BP diastolic 57–74
[2019-12-15] MEDS: BETHANECHOL 25 MG (URECHOLINE) TAB PO SCH ×4 (05:54→21:12)
[2019-12-15] MEDS: DOCUSATE SODIUM 100 MG (COLACE) CAP PO SCH ×2 (09:02→21:11)
--- NOTE | 2019-12-15 11:36 | Progress Note - Urology ---
Progress Note-Urology Progress Notes/Assess & Plan Progress/Assessment & Plan UNABLE TO VOID YESTERDAY, MOORE REINSERTED YESTERDAY AND STARTED ON URECHOLINE, TOLERATED WELL.URINE CLEAR. TOV AGAIN TODAY Final Diagnosis URINE RETENTION PHU HUGHES MD Dec 15, 2019 11:36
--- NOTE | 2019-12-15 14:22 | NUR ---
2900 mls of output was from cont. bladder irrigation.
--- NOTE | 2019-12-15 14:59 | NUR ---
Patient bladder scanned at 1400 and found to have 451 mls urine retention. This RN contacted Dr. Jang and he wants this RN to straight cath now and PRN. This RN used urojet to numb the urethral tract and proceeded to straight cath this patient with a 16 F cath using sterile technique. 393 ml of blood tinged urine with minimal sediment noted by this RN. This RN will cont. to monitor this patient for urine retention using bladder scanner.
--- NOTE | 2019-12-15 17:35 | NUR ---
report given to nitin hernandez who will assume care of this patient. Addendum: 12/15/19 at 1736 by FUAD JULIAN RN nitin morgan
--- NOTE | 2019-12-15 18:00 | NUR ---
BLADDER SCAN DONE. 225 CC NOTED.
--- NOTE | 2019-12-15 22:30 | NUR ---
Bladder scanned at 2145 and found to have 495 ml in bladder. Straight cath pt and 375 ml of dark blood tinged urine back. This RN will cont. to monitor patient for urine retention.
--- NOTE | 2019-12-15 23:56 | NUR ---
PT REUSED TO TAKE VS. HE SAID, " MY BLOOD PRESSURE IS FINE AND THAT IS THE ONLY THAT THE DR NEEDS TO KNOW THAT."
[2019-12-16 03:15] VITALS: BP 110/62
--- NOTE | 2019-12-16 03:18 | NUR ---
THIS RN ATTEMPTED TO PLACE PULSE OXIMETER ON PT'S FINGER. PT REFUSED. ALL OTHER VS TAKEN.
--- NOTE | 2019-12-16 04:56 | NUR ---
BLADDER SCAN SHOWING 505 ML IN BLADDER. STRAIGHT CATH PT AND 200 ML OF CLEAR BLOOD TINGED URINE BACK. PT TOLERATED WELL. WILL BE CONTINUE TO MONITOR FOR URINARY RETENTION.
[2019-12-16] MEDS: BETHANECHOL 25 MG (URECHOLINE) TAB PO SCH ×3 (06:30→17:12)
[2019-12-16 08:00] VITALS: BP 123/77
[2019-12-16] MEDS: DOCUSATE SODIUM 100 MG (COLACE) CAP PO SCH (08:01)
--- NOTE | 2019-12-16 08:58 | Progress Note - Urology ---
Progress Note-Urology Progress Notes/Assess & Plan Progress/Assessment & Plan UNABLE TO VOID ON OWN. TOLERATES URECHOLINE 50. OBSERVE TODAY AND IF NO LUCK VOIDING, DISCHARGE TOMORROW TO [facility] WITH MOORE Final Diagnosis URINE RETENTION PHU HUGHES MD Dec 16, 2019 08:58
[2019-12-16 12:00] VITALS: BP 117/65
[2019-12-16 15:45] VITALS: BP 120/72
== END ==
LOC: SDC 06:03 → 4TH 10:06
PROVIDERS: ATTEND Urology
DX: R33.9 Retention of urine, unspecified (principal); F32.9 Major depressive disorder, single episode, unspecified; M19.90 Unspecified osteoarthritis, unspecified site; F03.90 Unspecified dementia, unspecified severity, without behavioral disturbance, psychotic disturbance, mood disturbance, and anxiety; N18.9 Chronic kidney disease, unspecified; Z79.899 Other long term (current) drug therapy
CPT/HCPCS: 36415; 80048; 85027; 86850; 86900; 86901; 87081